=== PATIENT | male | born 1990 | race African-American/Black ===

== ENCOUNTER 2024-11-02 14:40 | Emergency (ER) | payer MEDICAID, SELFPAY ==
[2024-11-02 15:09] VITALS: BP 112/73; PULSE 89; RESP 16; TEMP 36.9; O2SAT 100; BMI 19.3
--- NOTE | 2024-11-02 15:11 | XR_ITS ---
Examination: PA lateral chest 2 views TECHNIQUE: Upright PA lateral chest 2 views Exam date and time: November 02, 2024 1517 hours INDICATIONS: Coughing shortness of breath beginning 4 days ago. FINDINGS: Normal heart size. Lungs are clear. The osseous structures are intact IMPRESSION: No active disease
--- NOTE | 2024-11-02 15:12 | EDNOTE_ITS ---
Upper Respiratory Inf. RME/HPI General Chief Complaint: Flu Like Symptoms Stated Complaint: COUGH X 4 DAYS Time Seen by Provider: 11/02/24 14:51 Source: patient Arrival date/time: 11/02/24 14:40 34-year-old male with a history of asthma presents to the emergency room with a chief complaint of coughing x 4 days. Mode of arrival: ambulatory Limitations: no limitations Related Data Allergies Allergy/AdvReac Type Severity Reaction Status Date / Time Penicillins Allergy Intermediate Hives Verified 11/02/24 14:45 Review of Systems Review of Systems Systems Reviewed: All systems reviewed, normal except as documented Constitutional Constitutional: Reports system reviewed and no additional complaints, except as documented, Denies fatigue, Denies fever(s), Denies headache(s) and Denies weakness Eyes Eyes: Reports system reviewed and no additional complaints, except as documented, Denies blurry vision and Denies change in vision ENT Ears, Nose, Mouth, and Throat: Reports system reviewed and no additional complaints, except as documented, Denies otalgia, Denies headache(s), Denies nasal congestion, Denies throat swelling and Denies vertigo Cardiovascular Cardiovascular: Reports system reviewed and no additional complaints, except as documented, Denies chest pain, Denies dyspnea and Denies dyspnea on exertion Respiratory Respiratory: Reports system reviewed and no additional complaints, except as documented, Reports chest congestion, Reports cough, Denies dyspnea, Denies dyspnea on exertion and Denies wheezing Gastrointestinal Gastrointestinal: Reports system reviewed and no additional complaints, except as documented, Denies abdominal pain, Denies cramping, Denies nausea and Denies vomiting Genitourinary Genitourinary: Reports system reviewed and no additional complaints, except as documented, Denies dysuria and Denies hematuria Musculoskeletal Musculoskeletal: Reports system reviewed and no additional complaints, except as documented and Denies back pain Integumentary/Breasts Skin/Breast: Reports system reviewed and no additional complaints, except as documented and Denies wounds Neurologic Neurologic: Reports system reviewed and no additional complaints, except as documented, Denies confusion, Denies headache(s), Denies lack of coordination, Denies vertigo and Denies weakness Psychiatric Psychiatric: Reports system reviewed and no additional complaints, except as documented, Denies anxiety, Denies confusion, Denies depression, Denies paranoia, Denies suicidal ideation and Denies tactile hallucinations Endocrine Endocrine: Reports system reviewed and no additional complaints, except as documented and Denies fatigue Hematologic/Lymphatic Hematologic/Lymphatic: Reports system reviewed and no additional complaints, except as documented and Denies lymphadenopathy Allergic/Immunologic Allergic/Immunologic: Reports system reviewed and no additional complaints, except as documented, Denies throat swelling, Denies urticaria and Denies wheezing Past Medical History Social History SMOKING STATUS: Never smoker ED Exam General Limitations: Present no limitations General appearance: Present alert and in no apparent distress Head Head exam: Present atraumatic Eye Eye exam: Present normal appearance, PERRL and EOMI ENT ENT exam: Present normal exam, normal oropharynx and mucous membranes moist Neck Neck exam: Present normal inspection, full ROM and trachea midline Chest Chest inspection: Present normal inspection and symmetric chest wall rise Respiratory Respiratory exam: Present normal lung sounds bilaterally; Absent respiratory distress, wheezes, stridor, accessory muscle use or prolonged expiratory phase Cardiovascular Cardiovascular exam: Present regular rate, normal rhythm and normal heart sounds Abdominal Exam Abdominal exam: Present soft and normal bowel sounds Extremities Exam Extremities exam: Present normal inspection and full ROM Back Exam Back exam: Present normal inspection and full ROM Neurological Exam Neurological exam: Present alert, oriented X3 and CN II-XII intact Psychiatric Psychiatric exam: Present normal affect and normal mood Skin Skin exam: Present warm, dry, intact and normal color Course Quality Measures none Orders Category Date Time Status Bedside COVID-19 Antigen Test NOW Care 11/02/24 15:11 Completed Bedside Influenza A&B Antigen Test NOW Care 11/02/24 15:11 Completed XR chest 2V Stat Exams 11/02/24 15:11 Completed Vital Signs Vital signs: Vital Signs Temperature 98.5 F 11/02/24 15:09 Pulse Rate 89 11/02/24 15:09 Respiratory Rate 16 11/02/24 15:09 Blood Pressure 112/73 11/02/24 15:09 Pulse Oximetry (%) 100 11/02/24 15:09 Oxygen Delivery Method Room Air 11/02/24 15:09 O2 saturation 100% on room air Upper Respiratory Infection MDM Narrative MDM Narrative:: 34-year-old male with a history of asthma presents to the emergency room with a chief complaint of coughing x 4 days. Patient is hemodynamically stable and in no apparent distress Patient is afebrile not tachycardic not tachypneic and O2 saturation 100% on room air Physical examination shows clear bilateral lung sounds with no wheezing stridor or any abnormal breath sounds Chest x-ray was negative for any pneumonic infiltrates. COVID-19 and influenza were both negative Patient was discharged educated to follow-up with his primary care provider in the next 24 to 40 hours or return to the emergency room for any evidence of worsening signs or send Patient data External records reviewed:: [facility] previous records Clinical information provided by:: patient Social determinants that could affect healthcare access:: none Patient has the following chronic illnesses:: No chronic illness How is presenting disease/condition affected by chronic disease/condition?: no chronic disease Evaluation data The following diagnostics were reviewed and interpreted by me:: lab results and radiology exam(s) Lab and/or radiology exams considered but not ordered:: Labs and radiology exams considered and ordered Interpretation Summary: Chest [id number] for any pneumonic infiltrates Medications / Prescriptions Medications or Prescriptions considered but not ordered:: No medication given Medication administrations:: No medication given Consultations Consultation(s) initiated? (list below): No Diagnosis Upper Respiratory Differential Diagnosis: upper respiratory infection, viral infection, bronchitis and influenza Most likely diagnosis given after review of the tests above:: Upper respiratory infection Admission Indicated Admission indicated?: not indicated Admission Request Was there a request for admission?: No Disposition Plan Disposition Plan: Discharge Discharge Attestation Discharge Attestation: The patient and all family members were given an opportunity to ask questions and understood the discharge instructions. Discharge instructions specifically effects, indications for sooner follow up or return to the emergency department, and the expected course of current diagnosis. Patient condition: Stable Discharge Plan Plan Patient Disposition: HOME (Self Care) Disposition Comment: Stable Prescriptions/Referrals Referrals: No Primary/Family,Physician [Primary Care Provider] - In 1 week Problem List Clinical Impression: Upper respiratory infection Patient/Caregiver Discharge Instructions Education Materials: ED URI, Viral, No Abx (Adult) Additional Instructions: Please follow-up with your primary care provider in the next 24 to 48 hours. You tested negative for influenza and COVID-19. Your chest x-ray is negative for pneumonia. Your most likely diagnosis is an upper respiratory infection that is viral. The treatment for this is symptom management. Please continue to take Tylenol and ibuprofen for fever management. Please increase your oral fluid intake. 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 Brito
== END 2024-11-02 16:40 | disposition home or self-care (01) ==
PROVIDERS: Emergency Provider Emergency Medicine
DX: J06.9 Acute upper respiratory infection, unspecified (principal); J45.909 Unspecified asthma, uncomplicated
CPT/HCPCS: 71046; 87400; 87811; 99283

== ENCOUNTER 2024-11-07 11:29 | Inpatient (IN) | payer MEDICAID, SELFPAY ==
[2024-11-07 11:30] VITALS: BMI 21.4
[2024-11-07 11:49] VITALS: BP 106/73; PULSE 133; RESP 29; TEMP 39.6; O2SAT 100
--- NOTE | 2024-11-07 11:51 | XR_ITS ---
Examination: PA lateral chest 2 views Technique: Upright PA lateral chest 2 views Indications: Fever coughing beginning 3 days ago. Exam date and time: November 07, 2024 1201 hrs. Findings: Subtle opacity in the right upper lobe Normal heart size Left lung clear Impression: Suspicious for early right upper lobe pneumonia
--- NOTE | 2024-11-07 11:52 | PD.EDRME ---
Rapid Medical Screening Exam [facility] Arrival date/time: 11/07/24 11:29 34-year-old male with a history of HIV presents to the emergency room with a chief complaint of a sore throat, fever, cough, phlegm x 5 days. I have greeted and performed a focused initial assessment of this patient. A comprehensive ED assessment and evaluation of the patient, analysis of all test results, and completion of the medical decision making process will be conducted by additional ED providers. Chief Complaint: Flu Like Symptoms Vital signs: Vital Signs Temperature 103.2 F H 11/07/24 11:49 Pulse Rate 133 H 11/07/24 11:49 Respiratory Rate 29 H 11/07/24 11:49 Blood Pressure 135/88 H 11/07/24 11:49 Pulse Oximetry (%) 100 11/07/24 11:49 Oxygen Delivery Method Room Air 11/07/24 11:49 Vital signs reviewed by provider: Yes
[2024-11-07 11:56] VITALS: TEMP 39.6
[2024-11-07] MEDS: ACETAMINOPHEN 500 MG TABLET 1000 MG PO (11:56)
[2024-11-07 12:28] LABS: Lactate (Lactic Acid) 1.4 mMol/L (0.4-2.0)
[2024-11-07 12:48] LABS: Basophils % (Auto) 0 % (0-2.5); Eosinophils % (Auto) 0 % (0-10); Hematocrit 25.7 % (41.0-53.0); Immature Granulocytes % (Auto) 1 % (0-0); Immature Granulocytes Auto 0.11 Thou/mm3 (0.00-0.00); Lymphocytes # (Auto) 2.5 Thou/mm3 (1.0-4.8); Lymphocytes % (Auto) 15 % (10-50); Mean Corpuscular HGB Conc 33.9 g/dl (31.0-37.0); Mean Corpuscular Volume 92 fL (80-100); Monocytes # (Auto) 0.9 Thou/mm3 (0.0-0.8); Monocytes % (Auto) 6 % (0-12); Neutrophils # (Auto) 12.9 Thou/mm3 (1.8-7.7); Neutrophils % (Auto) 78 % (37-80); Nucleated Red Blood Cell # 0.02 Thou/mm3 (0.00-0.00); Nucleated Red Blood Cell % 0 /100 WBC (0); Platelet Count 258 Thou/mm3 (140-440); RDW Standard Deviation 44.5 fL (35.1-43.9); Red Blood Count 2.81 Miln/mm3 (4.50-5.90); White Blood Count 16.4 Thou/mm3 (3.8-10.6)
[2024-11-07 13:00] LABS: Strep A Rapid Negative (Negative)
[2024-11-07 13:15] LABS: Alanine Aminotransferase 26 U/L (10-49); Albumin/Globulin Ratio 0.9 (1.2-2.2); Alkaline Phosphatase 160 U/L (46-116); Anion Gap 7 (7-16); Aspartate Amino Transferase 42 U/L (0-34); BUN/Creatinine Ratio 11 Ratio (12-20); Bilirubin,Total 0.3 mg/dL (0.3-1.2); Blood Urea Nitrogen 15 mg/dL (9-23); Calcium 8.9 mg/dL (8.3-10.6); Calcium (Corrected) 8.9 mg/dL (8.5-10.1); Carbon Dioxide 20.8 mMol/L (20.0-31.0); Chloride 107 mMol/L (98-107); Creatinine (Component) 1.4 mg/dL (0.6-1.3); Globulin 4.3 gm/dL (2.3-3.5); Glucose 93 mg/dL (74-106); Hemoglobin 8.7 g/dL (13.5-16.0); Osmolality,Calculated 270 (275-295); Potassium 4.1 mMol/L (3.4-5.1); Procalcitonin 0.29 ng/ml (0.0-0.49); Sodium 135 mMol/L (136-145); Total Protein 8.3 gm/dL (5.7-8.2); eGFR > 60 See Note
--- NOTE | 2024-11-07 16:16 | PD.EDFEVER ---
ED Fever RME/HPI General Chief Complaint: Flu Like Symptoms Stated Complaint: Cough, congestion, [place] x 6 days, fever. HIV + Arrival date/time: 11/07/24 11:29 RME / HPI RME / HPI Narrative: 11/07/24 11:29 34-year-old male with a history of HIV presents to the emergency room with a chief complaint of a sore throat, fever, cough, phlegm x 5 days. I have greeted and performed a focused initial assessment of this patient. A comprehensive ED assessment and evaluation of the patient, analysis of all test results, and completion of the medical decision making process will be conducted by additional ED providers. Related Data Allergies Allergy/AdvReac Type Severity Reaction Status Date / Time Penicillins Allergy Intermediate Hives Verified 11/02/24 14:45 Course Orders Category Date Time Status Bedside COVID-19 Antigen Test NOW Care 11/07/24 11:51 Active Bedside Influenza A&B Antigen Test NOW Care 11/07/24 11:51 Completed XR chest 2V Stat Exams 11/07/24 11:51 Completed Blood Culture (Lab) Stat Lab 11/07/24 11:57 Received CBC Stat Lab 11/07/24 11:57 Completed CMP [Comprehensive Metabolic Panel] Stat Lab 11/07/24 11:57 Completed Lactate (Lactic Acid) Stat Lab 11/07/24 11:57 Completed Procalcitonin Stat Lab 11/07/24 11:57 Completed Strep A Rapid Stat Lab 11/07/24 11:50 Completed UA [Urinalysis] Stat Lab 11/07/24 16:32 Completed Urine Culture Stat Lab 11/07/24 16:32 Received Acetaminophen Tab [Tylenol ES Tab] Med 11/07/24 11:52 Discontinued 1,000 mg PO X1 ONE Azithromycin Inj [Zithromax Inj] 500 mg Med 11/07/24 16:24 Active Sodium Chloride 0.9% 250 ml [Ns] 250 ml IV QPM Ringers Lactated 1000 ml [Lactated Ringers] 1,000 ml Med 11/07/24 16:24 Discontinued IV 2,000 mls/hr [id number] [Rocephin] 1,000 mg Med 11/07/24 16:23 Discontinued SODIUM CHLORIDE 0.9% (Popper) [Ns 0.9% (P)] 50 ml IV X1 Vital Signs Vital signs: Vital Signs Temperature 103.2 F H 11/07/24 11:49 Pulse Rate 133 H 11/07/24 11:49 Respiratory Rate 29 H 11/07/24 11:49 Blood Pressure 106/73 11/07/24 11:49 Pulse Oximetry (%) 100 11/07/24 11:49 Oxygen Delivery Method Room Air 11/07/24 11:49 Fever Medications / Prescriptions Medication administrations:: Medication Administration History Azithromycin 500 mg/ Sodium (Chloride) 250 mls @ 250 mls/hr IV QPM [place] Stop: 11/14/24 16:23 Discontinued Medications Acetaminophen (Acetaminophen 500 Mg Tablet) 1,000 mg PO X1 ONE Stop: 11/07/24 11:53 Last Admin: 11/07/24 11:56 Dose: 1,000 mg Documented By: BD Ceftriaxone Sodium 1,000 mg/ (Sodium Chloride) 50 mls @ 100 mls/hr IV X1 ONE Stop: 11/07/24 16:52 Lactated Ringer's (Lactated Ringers) 1,000 mls @ 2,000 mls/hr IV .Q30M ONE Stop: 11/07/24 16:53 Discharge Plan Prescriptions/Referrals Referrals: No Primary/Family,Physician [Primary Care Provider] - In 1 week Patient/Caregiver Discharge Instructions Print Language: Trinidadian
[2024-11-07 16:41] LABS: Collection Type, Urine Clean Catch; Squamous Epithelial Cell,Urine 0 /hpf (0-5)
[2024-11-07 16:52] LABS: Bilirubin,Urine Negative (Negative); Blood,Urine Negative (Negative); Clarity,Urine Clear (Clear/Hazy); Color,Urine Lt-Yellow (Lt Yel-Yel); Glucose, Urine Negative (Negative); Ketones,Urine Negative (Negative); Leukocyte Esterase,Urine Negative (Negative); Nitrite,Urine Negative (Negative); PH,Urine 6.5 (5.0-7.0); Protein,Urine 1+ (Neg - Trace); RBC,Urine 1 /hpf (0-3); Specific Gravity,Urine 1.016 (1.001-1.035); Urobilinogen,Urine Negative mg/dL (0.0-1.0); WBC,Urine < 1 /hpf (0-5)
--- NOTE | 2024-11-07 18:20 | PD.EDADDENDU ---
Emergency Room Addendum Addendum Narrative: Should be noted at approximately 1600 hrs. nurse Nichole approaches me states this patient is in the lobby for 3 hours and had a septic alert called earlier. I asked that the patient put in a room so I could see them and informed by the charge nurse and Nichole that there is no room. This obviously has delayed the septic alert. At 1820 hrs. patient is still in the waiting room and charge nurse is fully aware but there are no rooms in the ER to move this patient to. My shift is ended. Fluids were ordered based on vital signs abnormalities. Some removing myself from the chart
[2024-11-07 20:28] VITALS: TEMP 37.9
[2024-11-07] MEDS: cefTRIAXone 1,000 MG in SODIUM CHLORIDE 0.9% (Popper) 50 ML 100 MG IV (20:35)
[2024-11-07] MEDS: RINGERS LACTATED 1000 ML 1,000 ML 2000 ML IV (20:36)
[2024-11-07] MEDS: AZITHROMYCIN INJ 500 MG in SODIUM CHLORIDE 0.9% 250 ML 250 ML 250 MG IV (20:45)
--- NOTE | 2024-11-07 21:13 | PD.EDURI ---
Upper Respiratory Inf. RME/HPI General Chief Complaint: Flu Like Symptoms Stated Complaint: Cough, congestion, [place], [place] x 6 days, fever. HIV + Time Seen by Provider: 11/07/24 18:21 Arrival date/time: 11/07/24 11:29 Limitations: no limitations RME / HPI RME / HPI Narrative: 11/07/24 11:29 34-year-old male with a history of HIV presents to the emergency room with a chief complaint of a sore throat, fever, cough, phlegm x 5 days. I have greeted and performed a focused initial assessment of this patient. A comprehensive ED assessment and evaluation of the patient, analysis of all test results, and completion of the medical decision making process will be conducted by additional ED providers. DR. LÓPEZ MAIN ED EVALUATION: At 912 PM, patient was just brought to a room and I will evaluate the patient. 34-year-old male presents to the Emergency Department with complaint of chronic cough since July 25, 2024. Associated symptoms include a subjective fever, phlegm, and sore throat. Symptoms are moderate. No leg swelling. No rash. PMHx: HIV diagnosed in August 2024 with unknown level of CD4 count, bipolar disorder since 2017, noncompliant with some medication since 2021, hypertension since 2017 on lisinopril, diagnoses of food insecurity since January 2024, asymptomatic HIV infection as of 2009, diarrhea December 2023, history of syphilis 2017, history of homelessness in the past in 2022. Other history see MDM narrative. Social Hx: No tobacco, alcohol, or substance use. Related Data Allergies Allergy/AdvReac Type Severity Reaction Status Date / Time Penicillins Allergy Intermediate Hives Verified 11/02/24 14:45 Review of Systems Review of Systems Systems Reviewed: All systems reviewed, normal except as documented Narrative Review of Systems: GEN: + subjective fever, no chills, no weight loss EYES: No discharge, no visual changes, no pain HEENT: No ear pain, no congestion, + sore throat PULM: No shortness of breath, + chronic cough, + congestion CV: No chest pain, no dyspnea on exertion, no palpitations GI: No nausea, no vomiting, no diarrhea, no pain, no constipation : No frequency, no urgency and no dysuria MUSC/SKEL: No joint pain, no back pain SKIN: No rash PSYCH: No hallucinations, no depression HEME/LYMPH: No easy bleeding or bruising tendencies NEURO: No weakness, no headache Past Medical History Social History SMOKING STATUS: Never smoker SUBSTANCE USE: does not use ALCOHOL: Never ED Exam General Limitations: Present no limitations General appearance: Present alert and in no apparent distress Head Head exam: Present atraumatic, normocephalic and normal inspection Eye Eye exam: Present normal appearance, PERRL and EOMI ENT ENT exam: Present normal exam, normal oropharynx and mucous membranes moist Neck Neck exam: Present normal inspection, full ROM and trachea midline Chest Chest inspection: Present normal inspection and symmetric chest wall rise Respiratory Respiratory exam: Present normal lung sounds bilaterally Cardiovascular Cardiovascular exam: Present regular rate, normal rhythm and normal heart sounds Abdominal Exam Abdominal exam: Present soft and normal bowel sounds Extremities Exam Extremities exam: Present normal inspection and full ROM Back Exam Back exam: Present normal inspection and full ROM Neurological Exam Neurological exam: Present alert, oriented X3 and CN II-XII intact Psychiatric Psychiatric exam: Present normal affect and normal mood Skin Skin exam: Present warm, dry, intact and normal color Course Quality Measures none Orders Category Date Time Status Bedside COVID-19 Antigen Test NOW Care 11/07/24 11:51 Active Bedside Influenza A&B Antigen Test NOW Care 11/07/24 11:51 Completed COVID-19 Screening Questionnaire NOW Care 11/07/24 21:46 Active COVID-19 Screening Questionnaire NOW Care 11/07/24 22:39 Active Decision to Admit X1 Care 11/07/24 21:46 Completed Decision to Admit X1 Care 11/07/24 22:[address] chest abdomen pelvis w con SEPSIS PROTOCOL Stat Exams 11/07/24 21:31 Taken XR chest 2V Stat Exams 11/07/24 11:51 Completed Blood Culture (Lab) Stat Lab 11/07/24 11:57 Received CBC Stat Lab 11/07/24 11:57 Completed CMP [Comprehensive Metabolic Panel] Stat Lab 11/07/24 11:57 Completed Lactate (Lactic Acid) Stat Lab 11/07/24 11:57 Completed Procalcitonin Stat Lab 11/07/24 11:57 Completed Strep A Rapid Stat Lab 11/07/24 11:50 Completed UA [Urinalysis] Stat Lab 11/07/24 16:32 Completed Urine Culture Stat Lab 11/07/24 16:32 Received Acetaminophen Tab [Tylenol ES Tab] Med 11/07/24 11:52 Discontinued 1,000 mg PO X1 ONE Albuterol/Ipratr Rt Maria T [Duoneb Rt Maria T] Med 11/07/24 21:19 Discontinued 3 ml INH X1 ONE Azithromycin Inj [Zithromax Inj] 500 mg Med 11/07/24 16:24 Active Sodium Chloride 0.9% 250 ml [Ns] 250 ml IV QPM HYDROmorphone INJ [Dilaudid Inj] Med 11/07/24 22:19 Discontinued 0.5 mg IVP X1 ONE Ringers Lactated 1000 ml [Lactated Ringers] 1,000 ml Med 11/07/24 16:24 Discontinued IV 2,000 mls/hr Sodium Chloride 0.9% 1000 ml [Ns] 1,000 ml Med 11/07/24 22:19 Discontinued IV 999 mls/hr cefTRIAXone [Rocephin] 1,000 mg Med 11/07/24 16:23 Discontinued SODIUM CHLORIDE 0.9% (Popper) [Ns 0.9% (P)] 50 ml IV X1 Vital Signs Vital signs: Vital Signs Temperature 103.2 F H 11/07/24 11:49 Pulse Rate 133 H 11/07/24 11:49 Respiratory Rate 29 H 11/07/24 11:49 Blood Pressure 106/73 11/07/24 11:49 Pulse Oximetry (%) 100 11/07/24 11:49 Oxygen Delivery Method Room Air 11/07/24 11:49 Upper Respiratory Infection MDM Narrative MDM Narrative:: 34-year-old male with history of HIV diagnosed in August 2024 with unknown level of CD4 count followed at [facility]. Patient is previously a [facility] patient and I am looking at his records on his phone. Past medical history includes bipolar disorder since 2017, noncompliant with some medication since 2021. Hypertension since 2017 on lisinopril, diagnoses of food insecurity since January 2024, asymptomatic HIV infection as of 2009, diarrhea December 2023, history of syphilis 2017, history of homelessness in the past in 2022. It appears that he has been getting some care for his management per the record here March 15, 2024. Episode of chest pain June 24, 2024. Chronic cough since July 25, 2024. And weight loss. Previous bone records show history of acute kidney injury June 24, 2024-although the patient states he has not had a problem with his kidneys. protein calorie malnutrition severe diagnosed in May 2024, low magnesium July 19, 2024, dehydration 07/19/2024. Chronic metabolic acidosis July 23, 2024. Patient presents with sepsis secondary to pneumonia. Concern with HIV status and right upper lobe pneumonia. Cannot rule out other etiology. Patient is treated with 30 mL/kg bolus and antibiotics. The hospitalist team agrees to admit and they will follow the CT chest abdomen pelvis and make other recommendations as needed. Patient data External records reviewed:: [facility] previous records (Reviewed last admission discharge dated 11/02/24, patient admitted for the following: Upper respiratory infection) Clinical information provided by:: patient Social determinants that could affect healthcare access:: none Patient has the following chronic illnesses:: HIV diagnosed in August 2024 with unknown level of CD4 count, bipolar disorder since 2017, noncompliant with some medication since 2021, hypertension since 2017 on lisinopril, diagnoses of food insecurity since January 2024, asymptomatic HIV infection as of 2009, diarrhea December 2023, history of syphilis 2017, history of homelessness in the past in 2022. Other history see MDM narrative above. How is presenting disease/condition affected by chronic disease/condition?: exacerbated by Evaluation data The following diagnostics were reviewed and interpreted by me:: lab results and radiology exam(s) Lab and/or radiology exams considered but not ordered:: none Interpretation Summary: Procedure(s): XR chest 2V Accession Number(s): [id number] cc: Eliseo Cobb; Emir Romero MD; NO PRIMARY/FAMILY,PHYSICIAN~ Examination: PA lateral chest 2 views Technique: Upright PA lateral chest 2 views Indications: Fever coughing beginning 3 days ago. Exam date and time: November 07, 2024 1201 hrs. Findings: Subtle opacity in the right upper lobe Normal heart size Left lung clear Impression: Suspicious for early right upper lobe pneumonia Dictated By: Emir Romero MD Medications / Prescriptions Medications or Prescriptions considered but not ordered:: none Medication administrations:: Medication Administration History Acetaminophen (Acetaminophen 325 Mg Tablet) 650 mg PO Q6H PRN PRN Reason: Fever >101.5 Stop: 12/07/24 23:02 Acetaminophen (Acetaminophen Supp 650 Mg Supp) 650 mg LA Q6H PRN PRN Reason: PAIN SCALE 1-3 (mild Stop: 12/07/24 23:02 Albuterol/Ipratropium (Albuterol/Ipratropium (Duoneb) Rt Maria T 3 Ml Nebu) 3 ml INH Q6HRRT [place] Stop: 12/08/24 00:59 Last Admin: 11/08/24 00:30 Dose: 3 ml Documented By: HALEIGH Heparin Sodium (Porcine) (Heparin Sod Inj 5000 Unit/Ml Vial) 5,000 unit SC Q8HR [place] Stop: 11/22/24 05:59 Last Admin: 11/08/24 05:44 Dose: 5,000 unit Documented By: CVL Co-signed By: RAKEL Azithromycin 500 mg/ Sodium (Chloride) 250 mls @ 250 mls/hr IV QPM [place] Stop: 11/14/24 16:23 Last Infusion: 11/08/24 00:14 Dose: Infused Documented By: Admin: 11/07/24 20:45 Dose: 250 mls/hr Documented By: ANKUR Ceftriaxone Sodium 1,000 mg/ (Sodium Chloride) 50 mls @ 100 mls/hr IV QDAY [place] Stop: 11/14/24 23:11 Trimethoprim/Sulfamethoxazole (5 ml/ Dextrose) 105 mls @ 100 mls/hr IV Q6HR [place] Stop: 11/15/24 04:10 Ondansetron HCl (Ondansetron Inj 2 Mg/Ml Inj 2 Ml) 4 mg IV Q6H PRN; Protocol PRN Reason: NAUSEA OR VOMITING Stop: 12/07/24 23:02 Discontinued Medications Acetaminophen (Acetaminophen 500 Mg Tablet) 1,000 mg PO X1 ONE Stop: 11/07/24 11:53 Last Admin: 11/07/24 11:56 Dose: 1,000 mg Documented By: BD Albuterol/Ipratropium (Albuterol/Ipratropium (Duoneb) Rt Maria T 3 Ml Nebu) 3 ml INH X1 ONE Stop: 11/07/24 21:20 Last Admin: 11/07/24 21:39 Dose: 3 ml Documented By: ALIDA Azithromycin (Azithromycin 250 Mg Tablet) 250 mg PO X1 ONE Stop: 11/07/24 23:09 Last Admin: 11/08/24 00:14 Dose: Not Given Documented By: SHARIF Non-Admin Reason: Cancelled by Provider Hydromorphone HCl (Hydromorphone Inj 2 Mg/Ml Vial) 0.5 mg IVP X1 ONE Stop: 11/07/24 22:20 Ceftriaxone Sodium 1,000 mg/ (Sodium Chloride) 50 mls @ 100 mls/hr IV X1 ONE Stop: 11/07/24 16:52 Last Infusion: 11/07/24 21:08 Dose: Infused Documented By: Admin: 11/07/24 20:35 Dose: 100 mls/hr Documented By: ANKUR Comments: meds not given at time due to no rooms Lactated Ringer's (Lactated Ringers) 1,000 mls @ 2,000 mls/hr IV .Q30M ONE Stop: 11/07/24 16:53 Last Infusion: 11/08/24 00:14 Dose: Infused Documented By: Admin: 11/07/24 20:36 Dose: 2,000 mls/hr Documented By: ANKUR Comments: meds not given on time due to no rooms. Sodium Chloride (Ns) 1,000 mls @ 999 mls/hr IV .Q1H1M ONE Stop: 11/07/24 23:19 Sodium Chloride (Ns) 500 mls @ 999 mls/hr IV .Q31M ONE Stop: 11/07/24 23:33 Last Infusion: 11/08/24 00:15 Dose: Infused Documented By: Admin: 11/07/24 23:52 Dose: 999 mls/hr Documented By: EE Sodium Chloride (Sodium Chloride Rt 10% 15 Ml Nebu) 5 ml INH X1 ONE Stop: 11/07/24 23:09 Last Admin: 11/08/24 04:31 Dose: 5 ml Documented By: HALEIGH see above Consultations Consultation(s) initiated? (list below): Yes Consultation #1 (Physician, Specialty, Details): Discussed case with [the resident physician] from Hospitalist service regarding admission. Discussed patients ED course, exam findings, labs, and radiology results. The Hospitalist [agrees] to accept the patient for admission. Diagnosis Upper Respiratory Differential Diagnosis: viral infection, influenza and other (pneumonia) Most likely diagnosis given after review of the tests above:: see below Admission Indicated Admission indicated?: indicated Admission Request Was there a request for admission?: Yes Admission Attestation Admission request attestation: Discussed case with [] from Hospitalist service regarding admission. Discussed patients ED course, exam findings, labs, and radiology results. The Hospitalist [agrees,declines] to accept the patient for admission. Disposition Plan Disposition Plan: Admit Discharge Plan Plan Patient Disposition: Admit Acute Care w/in Hospital Patient condition on transfer: Stable Problem List Clinical Impression: HIV (human immunodeficiency virus infection), Sepsis, Right upper lobe pneumonia, Anemia, History of asthma
--- NOTE | 2024-11-07 21:31 | XR_ITS ---
Examination: CT chest with intravenous contrast CT abdomen with intravenous contrast CT pelvis with intravenous contrast 2-D coronal and sagittal reconstructions Time of exam: November 09, 2019 5004 100 hours Indications: HIV, headache nausea vomiting fever beginning 6 days ago, sepsis alert CTDI: vol (mGy) : 4.88 DLP: (mGycm): 334 Technique: Multiple axial images of the chest, abdomen and pelvis with intravenous contrast, 3.0 mm slice thickness. Images obtained post intravenous injection Isovue 370 60 cc. 2-D sagittal and coronal reconstructions. Low dose protocols were performed. One or more of the following dose reduction techniques were used; automated exposure control, adjustment of the mA and/or KV according to patient size, use of iterative reconstruction technique. Findings: No thoracic degenerative aneurysm dilatation Pulmonary artery segments are not enlarged No paratracheal tracheobronchial or bronchopulmonary adenopathy Diffuse soft tissue nodular opacities throughout both lungs Fatty infiltration throughout the liver no focal liver or splenic lesions No gallstones Multiple fluid distended small bowel loops as well as fluid distended colon Large amounts of stool in the rectosigmoid No free air No hydronephrosis Aorta normal size Appendix is fluid-filled but without definite inflammatory change Intact osseous structures Impression: Extensive bilateral pneumonia Colonic and small bowel ileus pattern
[2024-11-07] MEDS: ALBUTEROL/IPRATROPIUM (Duoneb) RT SOL 3 ML NEBU INH (21:39)
[2024-11-07 21:40] VITALS: PULSE 76; RESP 20; O2SAT 99
[2024-11-07] MEDS: SODIUM CHLORIDE 0.9% 500 ML 500 ML 999 ML IV (23:52)
[2024-11-07 23:56] VITALS: BP 134/67; PULSE 86; RESP 18; TEMP 37.6; O2SAT 99
[2024-11-08] VITALS (20 sets, daily range): BP systolic 99–154; BP diastolic 59–78; PULSE 87–119; RESP 15–23; TEMP 36.7–38.9; O2SAT 92–100; BMI 21.4
[2024-11-08] MEDS: ALBUTEROL/IPRATROPIUM (Duoneb) RT SOL 3 ML NEBU INH ×4 (00:30→20:09)
--- NOTE | 2024-11-08 01:26 | ESHP_ITS ---
<Statement entered by Aly Cuenca MD - 11/08/24 05:41> 34-year-old with HIV on Biktarvy with unknown last CD4 count, chronic diarrhea, remote history of syphilis and bipolar disorder who presented to the ER with productive cough. Patient states that he is from [facility] and recently moved to the area with her however has been having progressively worsening productive cough that has been going on for the past 6 days. Patient also endorses fevers however denies any hemoptysis states that he has been having 30 pound weight loss that he attributes to chronic diarrhea that has been going on for the past couple months. Patient denies any gardening or farming that could put him at risk for coccidiomycosis. In the ER, patient was noted to be septic and plan to initiate Rocephin and azithromycin. Patient also placed on airborne precaution pending CT chest to further evaluate for any lesions such as cavitary lesions or diffuse opacities that can suggest possible PJP pneumonia. As of now, plan to continue IV antibiotic therapy and patient has showed significant improvement with breaking his fevers. As of now, low suspicion for cocci or TB as patient symptoms is improving however if CT chest shows any cavitary lesion at that point might need a active TB workup, however unlikely.I reviewed above note and agree with findings and plans. I have also personally examined the patient with medicine team and went over assessment and plan with medical team including internal audit manager and resident physician. Documentation for date of: 11/08/24 HPI History of Present Illness Chief complaint: cough for 6 days before admission History of present illness: HPI: A 34-year-old male patient known case of HIV On Biktarvy last use was in August 2024, unknown last CD4 count, asthma, chronic anemia, remote history of syphilis, Bipolar disorder on a regular treatment, hypertension presented to the ED due to history of 6 days of productive cough. Patient reported that he recently came from [facility] to live with his . He mentioned that on Thursday last week his symptoms started as generalized malaise followed by productive cough which was yellowish sputum. Patient also reported mild shortness of breath, fever and chills. He denied any hemoptysis, or sick contacts. On further questioning patient reported that his weight fluctuate but recently he mentions that he noticed that he lost some weight. On review of other system patient reported that he has been having multiple bouts of diarrhea in which she cannot control himself and he has multiple accidents. He mentions that his stool is yellowish in color with no blood. He mentions that he has been diagnosed with Giardia previously. Home medications:Gabapentin, albuterol, buspiron, biktarvy, depokte, lisinopril, hydroxizine, loratidin. ED course: On presentation patient was found to be having excessive cough with phlegm production, found to be in septic state with pulse rate of 133, respiratory rate of 29, temperature of 103.2, his blood pressure is stable, noted to have a WBC of 16.4, hemoglobin of 8.7 normocytic, electrolytes within normal limits, serum creatinine is 1.4 within have previous serum creatinine levels, his AST was mildly elevated at 42, ALT 26, normal T. bili and alk phos. PMH: As above, patient history was taken from his patient portal chart from his phone Social hx: Alcohol: Denied Tobacco: Denied Illicit drugs: Denied Allergies: Penicillin Review of Systems Review of Systems Systems Reviewed: All systems reviewed, normal except as documented Exam Vital Signs Temp Pulse Resp BP Pulse Ox O2 Del Method 99.6 F 94 20 134/67 H 97 Room Air 11/07/24 23:56 11/08/24 00:34 11/08/24 00:34 11/07/24 23:56 11/08/24 00:34 11/07/24 23:56 Narrative Exam GEN: AOx3, able to speak full sentences HEENT: NC/AC, PERRLA, oral mucosa moist, neck supple CVS: RRR, S1-S2 present, no murmurs appreciated RESP: Coarse crackles bilaterally more on the right side GI: soft,non distended, non tender, NBS MSK: able to move all 4 limbs, no lower extremity edema SKIN: warm and dry CORPORATE SAFETY DIRECTOR: CN II-XII and Sensation grossly intact. Results: Labs 11/07/24 11:57 11/07/24 11:57 Labs: Short CBC 11/07/24 Range/Units 11:57 WBC 16.4 H (3.8-10.6) Thou/mm3 Hgb 8.7 L (13.5-16.0) g/dL Hct 25.7 L (41.0-53.0) % Plt Count 258 (140-440) Thou/mm3 BMP 11/07/24 11:57 Sodium 135 L Potassium 4.1 Chloride 107 Carbon Dioxide 20.8 BUN 15 Creatinine 1.4 H Glucose 93 Calcium 8.9 Liver Function 11/07/24 Range/Units 11:57 Total Bilirubin 0.3 (0.3-1.2) mg/dL AST 42 H (0-34) U/L ALT 26 (10-49) U/L Alkaline Phosphatase 160 H (46-116) U/L Albumin 4.0 (3.5-5.0) gm/dL Urine 11/07/24 Range/Units 16:32 Urine Color Lt-Yellow (Lt Yel-Yel) Urine Clarity Clear (Clear/Hazy) Urine pH 6.5 (5.0-7.0) Ur Specific [place] 1.016 (1.001-1.035) Urine Protein 1+ A (Neg - Trace) Urine Glucose (UA) Negative (Negative) Quality Measures Quality Measures none Medications Home Medications and Allergies Allergies Allergy/AdvReac Type Severity Reaction Status Date / Time Penicillins Allergy Intermediate Hives Verified 11/02/24 14:45 Visit Medications Acetaminophen (Acetaminophen 325 Mg Tablet) 650 mg PO Q6H PRN PRN Reason: Fever >101.5 Stop: 12/07/24 23:02 Acetaminophen (Acetaminophen Supp 650 Mg Supp) 650 mg ME Q6H PRN PRN Reason: PAIN SCALE 1-3 (mild Stop: 12/07/24 23:02 Albuterol/Ipratropium (Albuterol/Ipratropium (Duoneb) Rt Maria T 3 Ml Nebu) 3 ml INH Q6HRRT MALLORIE Stop: 12/08/24 00:59 Last Admin: 11/08/24 00:30 Dose: 3 ml Heparin Sodium (Porcine) (Heparin Sod Inj 5000 Unit/Ml Vial) 5,000 unit SC Q8HR MALLORIE Stop: 11/22/24 05:59 Azithromycin 500 mg/ Sodium (Chloride) 250 mls @ 250 mls/hr IV QPM MALLORIE Stop: 11/14/24 16:23 Last Infusion: 11/08/24 00:14 Dose: Infused Ceftriaxone Sodium 1,000 mg/ (Sodium Chloride) 50 mls @ 100 mls/hr IV QDAY MALLORIE Stop: 11/14/24 23:11 Ondansetron HCl (Ondansetron Inj 2 Mg/Ml Inj 2 Ml) 4 mg IV Q6H PRN; Protocol PRN Reason: NAUSEA OR VOMITING Stop: 12/07/24 23:02 Discontinued Medications Acetaminophen (Acetaminophen 500 Mg Tablet) 1,000 mg PO X1 ONE Stop: 11/07/24 11:53 Last Admin: 11/07/24 11:56 Dose: 1,000 mg Albuterol/Ipratropium (Albuterol/Ipratropium (Duoneb) Rt Maria T 3 Ml Nebu) 3 ml INH X1 ONE Stop: 11/07/24 21:20 Last Admin: 11/07/24 21:39 Dose: 3 ml Azithromycin (Azithromycin 250 Mg Tablet) 250 mg PO X1 ONE Stop: 11/07/24 23:09 Last Admin: 11/08/24 00:14 Dose: Not Given Hydromorphone HCl (Hydromorphone Inj 2 Mg/Ml Vial) 0.5 mg IVP X1 ONE Stop: 11/07/24 22:20 Ceftriaxone Sodium 1,000 mg/ (Sodium Chloride) 50 mls @ 100 mls/hr IV X1 ONE Stop: 11/07/24 16:52 Last Infusion: 11/07/24 21:08 Dose: Infused Lactated Ringer's (Lactated Ringers) 1,000 mls @ 2,000 mls/hr IV .Q30M ONE Stop: 11/07/24 16:53 Last Infusion: 11/08/24 00:14 Dose: Infused Sodium Chloride (Ns) 1,000 mls @ 999 mls/hr IV .Q1H1M ONE Stop: 11/07/24 23:19 Sodium Chloride (Ns) 500 mls @ 999 mls/hr IV .Q31M ONE Stop: 11/07/24 23:33 Last Infusion: 11/08/24 00:15 Dose: Infused Sodium Chloride (Sodium Chloride Rt 10% 15 Ml Nebu) 5 ml INH X1 ONE Stop: 11/07/24 23:09 Assessment & Plan Plan Summary: A 34-year-old male patient known case of HIV On Biktarvy last use was in August 2024, unknown last CD4 count, asthma, chronic anemia, remote history of syphilis, Bipolar disorder on a regular treatment, hypertension presented to the ED due to history of 6 days of productive cough. Patient was admitted for management of lower respiratory tract infection. Assessment and plan #Sepsis secondary to pneumonia #Community-acquired pneumonia versus PJP #History of asthma #HIV infection of unknown CD4 count Patient is known case of HIV, on irregular treatment of Biktarvy, last time he used Biktarvy was in August 2024, he lives with his male partner, presented with fever, chills, productive cough. Unknown last CD4 count, found to be in septic state with pulse rate of 133, respiratory rate of 29, temperature of 103.2, his blood pressure is stable, noted to have a WBC of 16.4. Lactic acid was 1.4, chest x-ray showed right upper lobe pneumonia, because it is not bilateral infiltrate and was still pending the chest CT scan will treat the patient as community-acquired pneumonia. Can be changed whenever we have more data such as CT scan or BAL Plan ? Admit patient to telemetry ? Start the patient on ceftriaxone 1 g 4 times daily and azithromycin 250 mg daily for 4 days ? Follow-up on the blood culture and urine culture ? Consider resuming Biktarvy for the patient or consult infectious disease specialist if needed ? Sent for beta glucan, B-D glucan, cocci, Legionella, MRSA screening ? DuoNebs every 6 hours scheduled consider switching him to as needed upon improvement - QuantiFERON TB test ? Put patient on airborne precautions and droplet precautions ? Follow-up on the chest CT scan results consider starting the patient on Bactrim if highly suspected. #History of chronic diarrhea Patient reported that he has multiple episodes of accidents because of his recurrent diarrhea, he denied any bleeding per rectum. Patient has history of HIV and he was at some point diagnosed with Giardia. Patient denied any abdominal pain, rectal urgency, bleeding per rectum, or painful defecation Plan ? Sent for stool culture, WBCs, calprotectin, Giardia screening #Transaminitis Noticed to have AST level of 42, ALT of 26 Plan ? Sent for acute hepatitis panel follow-up on the results #History of chronic anemia Patient has chronic history of anemia, normocytic, has history of chronic diarrhea and fluctuation of body weight DDx could be anemia of chronic disease, nutritional deficiency Plan ? Consider doing iron panel for the patient ? Sent for fecal occult blood, follow-up with results ? Consider nonurgent colonoscopy if needed #Remote history of syphilis Plan ? Will repeat STD panel #History of hypertension Plan ? Resume blood pressure whenever this appropriate #History of bipolar disorder Patient has history of bipolar disorder on regular treatment with Depakote Plan ? Consider resuming his Depakote upon med reconciliation Hospital Maintenance: FEN: Regular diet DVT ppx: Heparin subcu GI ppx: Protonix IV lines: PIV Damian: None Code status: Full code Dispo: Telemetry - Patient's plan and care discussed with my attending, Dr. Bang Butcher MD Internal Medicine PGY-2
--- NOTE | 2024-11-08 03:03 | PRELIM_ITS ---
CT scan of the chest, abdomen and pelvis with intravenous contrast (axial sections with sagittal and coronal reformats) November 08, 2024 0049 hours Clinical History: 34-year-old history of HIV with right upper lobe p No prior study is available for comparison. Findings: A small hiatal hernia is present. There are patchy ground glass opacities and clusters of tiny nodular densities with tree in bud appearance in bilateral upper and lower lobes. There is no pleural effusion or pneumothorax. The aorta is unremarkable without evidence of dissection or aneurysm. No evidence of mediastinal mass or lymphadenopathy. There is no pericardial effusion. The liver, gallbladder, spleen, pancreas, adrenals and kidneys are unremarkable. Moderate amount of fecal material is present in the sigmoid colon and rectum. Fluid-filled mildly distended small and large bowel loops. The appendix is not visualized. The urinary bladder is not well distended with apparent wall thickening. There is no free fluid or air. The osseous structures are unremarkable. Impression: Patchy ground glass opacities and clusters of tiny nodular densities with tree in bud appearance in bilateral upper and lower lobes, likely of infectious etiology. Mild ileus/enterocolitis. Recommend clinical correlation. Fecal impaction in the rectosigmoid colon. Other findings as described above. Report Electronically Signed By: Blane Beaver 11/08/2024 3:02:33 AM [EST]
[2024-11-08] MEDS: SODIUM CHLORIDE RT 10% 15 ML NEBU 5 ML INH (04:31)
[2024-11-08] MEDS: HEPARIN SOD INJ 5000 UNIT/ML VIAL SC ×3 (05:44→21:29)
[2024-11-08 05:51] LABS: Quantiferon-TB* See Sep Rpt
[2024-11-08 05:59] LABS: Basophils % (Auto) 0 % (0-2.5); Eosinophils % (Auto) 0 % (0-10); Immature Granulocytes % (Auto) 1 % (0-0); Immature Granulocytes Auto 0.12 Thou/mm3 (0.00-0.00); Lymphocytes # (Auto) 1.3 Thou/mm3 (1.0-4.8); Lymphocytes % (Auto) 12 % (10-50); Mean Corpuscular HGB Conc 33.5 g/dl (31.0-37.0); Mean Corpuscular Hemoglobin 31.1 pg (25.0-35.0); Mean Corpuscular Volume 93 fL (80-100); Monocytes # (Auto) 0.5 Thou/mm3 (0.0-0.8); Monocytes % (Auto) 5 % (0-12); Neutrophils # (Auto) 8.7 Thou/mm3 (1.8-7.7); Neutrophils % (Auto) 82 % (37-80); Nucleated Red Blood Cell % 0 /100 WBC (0); Platelet Count 207 Thou/mm3 (140-440); RDW Standard Deviation 44.2 fL (35.1-43.9); Red Blood Count 2.25 Miln/mm3 (4.50-5.90); White Blood Count 10.6 Thou/mm3 (3.8-10.6)
[2024-11-08 06:07] LABS: Hematocrit 20.9 % (41.0-53.0)
[2024-11-08 06:33] LABS: INR 1.3 (0.9-1.3); Partial Thromboplastin Time 34.5 Seconds (22.0-36.0); Prothrombin Time 14.1 Seconds (9.0-12.2)
[2024-11-08 06:38] LABS: Alanine Aminotransferase 20 U/L (10-49); Albumin, Serum 3.3 gm/dL (3.5-5.0); Albumin/Globulin Ratio 0.9 (1.2-2.2); Alkaline Phosphatase 128 U/L (46-116); Anion Gap 5 (7-16); Aspartate Amino Transferase 27 U/L (0-34); BUN/Creatinine Ratio 13 Ratio (12-20); Bilirubin,Total 0.3 mg/dL (0.3-1.2); Blood Urea Nitrogen 14 mg/dL (9-23); Calcium 8.3 mg/dL (8.3-10.6); Calcium (Corrected) 8.9 mg/dL (8.5-10.1); Carbon Dioxide 21.7 mMol/L (20.0-31.0); Chloride 111 mMol/L (98-107); Creatinine (Component) 1.1 mg/dL (0.6-1.3); Estimated Creatinine Clearance 81.5 mL/min (>60); Globulin 3.6 gm/dL (2.3-3.5); Glucose 87 mg/dL (74-106); Magnesium 1.3 mg/dL (1.6-2.6); Osmolality,Calculated 275 (275-295); Potassium 3.3 mMol/L (3.4-5.1); Sodium 138 mMol/L (136-145); Thyroid Stimulating Hormone 1.85 uIU/mL (0.55-4.78); Total Protein 6.9 gm/dL (5.7-8.2); eGFR > 60 See Note
[2024-11-08 06:49] LABS: MHATP/TP-PA* See Sep Rpt; Syphilis Reactive (Nonreactive)
[2024-11-08 07:08] LABS: Hepatitis A Antibody IgM Non Reactive (Non React); Hepatitis B Core Antibody IgM Non Reactive (Non React); Hepatitis B Surface Antigen Non Reactive (Non React); Hepatitis C Antibody Non Reactive (Non React)
[2024-11-08 07:54] LABS: Collection Type, Urine Clean Catch; Squamous Epithelial Cell,Urine 0 /hpf (0-5)
[2024-11-08 08:16] LABS: Bilirubin,Urine Negative (Negative); Blood,Urine Negative (Negative); Clarity,Urine Clear (Clear/Hazy); Color,Urine Lt-Yellow (Lt Yel-Yel); Glucose, Urine Negative (Negative); Ketones,Urine Negative (Negative); Leukocyte Esterase,Urine Negative (Negative); Nitrite,Urine Negative (Negative); Protein,Urine Trace (Neg - Trace); RBC,Urine 1 /hpf (0-3); Specific Gravity,Urine 1.016 (1.001-1.035); Urobilinogen,Urine Negative mg/dL (0.0-1.0); WBC,Urine < 1 /hpf (0-5)
--- NOTE | 2024-11-08 08:19 | PC.NURSE ---
report given from radio communications mechanician Hramony rosenbaum. pt is admit for pneumonia and r/o valley fever. pt is in airborne precautions at this time. pt is pending also a stool sample due to diarrhea with hx of James infection. pt has cough that is continuous. no fever at this time. pt hs a&ox4 and is pending admit bed.
[2024-11-08 08:43] LABS: HIV 1/2 Confirmation* See Sep Rpt
[2024-11-08] MEDS: TRIMETHOPRIM/SULFA 160/800 DS TABLET 2 TAB PO ×3 (09:07→21:29)
--- NOTE | 2024-11-08 09:12 | PC.NURSE ---
SPOKE TO DR. NEGRON AND MADE AWARE PT'S POTASSIUM 3.3 AND THAT PT PREFERE LIQUID FORM OF ORAL MEDICATIONS. PER DR. NEGRON, WILL PUT ORDERS IN SOON.
--- NOTE | 2024-11-08 09:17 | PC.NURSE ---
pt has friend/family at bedside.
[2024-11-08 09:19] LABS: Misc Send Out* See Sep Rpt
[2024-11-08] MEDS: POTASSIUM CHLORIDE 10% 20 MEQ/15 ML UDC PO (10:03)
[2024-11-08] MEDS: Magnesium Sulfate 4 GM Ivpb 4 GM/50 ML BAG IV (10:21)
--- NOTE | 2024-11-08 10:26 | PC.NURSE ---
SPOKE TO DR. NEGRON AND MADE AWARE PT IS REQUESTING COUGH MEDICINE. PER DR. NEGRON, WILL PUT AN ORDER IN.
--- NOTE | 2024-11-08 10:27 | PC.NURSE ---
SPOKE TO DR. NEGRON AND MADE AWARE PT IS COUGHING AND REQUESTING COUGH MEDICINE AT THIS TIME; PER DR. NEGRON, WILL PUT ORDERS IN.
[2024-11-08] MEDS: guaiFENesin SYRUP 200 MG/10 ML UDC 100 MG PO ×2 (10:34→16:45)
[2024-11-08] MEDS: ACETAMINOPHEN 325 MG TABLET 650 MG PO ×3 (10:47→23:59)
[2024-11-08 13:15] LABS: Cocci Serology, IgM Negative (Negative)
--- NOTE | 2024-11-08 14:24 | ESPR_ITS ---
<Statement entered by Megan Garcia MD - 11/09/24 07:35> Patient was seen and examined by me personally. I have directly supervised and reviewed documentation by the team resident and agree with its findings with any exceptions or additional findings as below. Plan of care was discussed with the attending, Dr. Hyde. Megan Garcia, PGY-2 Documentation for date of: 11/08/24 Subjective Subjective Interval history: 11/08/2024: Overnight admission for 34-year-old male with past medical history of HIV, syphilis, bipolar disorder who presented for symptoms of upper respiratory tract infection found to have concerning imaging findings leading to admission for pneumonia and pneumocystis jirovecci infection. Patient started on empiric IV antibiotic treatment with azithromycin, ceftriaxone and Bactrim with workup. Infectious disease has been consulted for recommendations and antibiotic stewardship. Patient also has symptoms of diarrhea andstoolculture WBC and Giardia is pending collection. Will follow-up with the patient's viral load and CD4 count. Patient's hemoglobin also resulted at 7.0 as a result will transfuse 1 unit of PRBC and follow-up with repeat H&H; workup sent for iron panel, reticulocyte count and peripheral blood smear. Exam Vital Signs Temp Pulse Resp BP Pulse Ox O2 Del Method 99.0 F 107 H 15 106/63 98 Room Air 11/08/24 13:06 11/08/24 13:06 11/08/24 13:06 11/08/24 13:06 11/08/24 13:06 11/08/24 10:23 Narrative Exam Physical Exam: GEN: Awake, answering questions appropriately, appears stated age HEENT: NC/AC, PERRLA, oral mucosa moist, neck supple CVS: RRR, S1-S2 present, no murmurs appreciated RESP: Coarse crackles bilaterally more on the right side GI: soft,non distended, non tender, NBS MSK: able to move all 4 limbs, no lower extremity edema RIP SAWYER: AOx3, CN II-XII and Sensation grossly intact. Objective Labs 11/09/24 04:42 11/09/24 04:42 Labs: Laboratory Results - last 24 hr 11/07/24 11/08/24 11/08/24 16:32 05:25 07:28 WBC 10.6 D RBC 2.25 L Hgb 7.0 L Hct 20.9 L* MCV 93 MCH 31.1 MCHC 33.5 RDW Std Deviation 44.2 H Plt Count 207 D Neut % (Auto) 82 H Lymph % (Auto) 12 O'Brien % (Auto) 5 Eos % (Auto) 0 Baso % (Auto) 0 Neut # (Auto) 8.7 H Lymph # (Auto) 1.3 O'Brien # (Auto) 0.5 Eos # (Auto) 0.0 Baso # (Auto) 0.0 Immature Gran # (Auto) 0.12 H Absolute Nucleated RBC 0.00 Immature Gran % 1 H Nucleated RBC % 0 PT 14.1 H INR 1.3 APTT 34.5 Sodium 138 Potassium 3.3 L D Chloride 111 H Carbon Dioxide 21.7 Anion Gap 5 L BUN 14 Creatinine 1.1 Estim Creat Clear Calc 81.5 eGFR > 60 BUN/Creatinine Ratio 13 Glucose 87 Calculated Osmolality 275 Calcium 8.3 Corrected Calcium 8.9 Phosphorus 2.0 L Magnesium 1.3 L Total Bilirubin 0.3 AST 27 ALT 20 Alkaline Phosphatase 128 H D Total Protein 6.9 Albumin 3.3 L D Globulin 3.6 H Albumin/Globulin Ratio 0.9 L TSH 1.85 Ur Collection Type Clean Catch Clean Catch Urine Color Lt-Yellow Lt-Yellow Urine Clarity Clear Clear Urine pH 6.5 7.0 Ur Specific [place] 1.016 1.016 Urine Protein 1+ A Trace Urine Glucose (UA) Negative Negative Urine Ketones Negative Negative Urine Blood Negative Negative Urine Nitrite Negative Negative Urine Bilirubin Negative Negative Urine Urobilinogen (Auto) Negative Negative Ur Leukocyte Esterase Negative Negative Urine RBC 1 1 Urine WBC < 1 < 1 Ur Squamous Epith Cells 0 0 Urine Bacteria None None Syphilis Serology Reactive A Coccidioides IgM Ab Negative Hepatitis A IgM Ab Non Reactive Hep Bs Antigen Non Reactive Hep B Core IgM Ab Non Reactive Hepatitis C Antibody Non Reactive HIV 1&2 Antibody Rapid See Comment Misc Test Result Cancelled Blood Type Antibody Screen Crossmatch Blood Bank Wristband ID 11/08/24 08:52 WBC RBC Hgb Hct MCV MCH MCHC RDW Std Deviation Plt Count Neut % (Auto) Lymph % (Auto) O'Brien % (Auto) Eos % (Auto) Baso % (Auto) Neut # (Auto) Lymph # (Auto) O'Brien # (Auto) Eos # (Auto) Baso # (Auto) Immature Gran # (Auto) Absolute Nucleated RBC Immature Gran % Nucleated RBC % PT INR APTT Sodium Potassium Chloride Carbon Dioxide Anion Gap BUN Creatinine Estim Creat Clear Calc eGFR BUN/Creatinine Ratio Glucose Calculated Osmolality Calcium Corrected Calcium Phosphorus Magnesium Total Bilirubin AST ALT Alkaline Phosphatase Total Protein Albumin Globulin Albumin/Globulin Ratio TSH Ur Collection Type Urine Color Urine Clarity Urine pH Ur Specific [place] Urine Protein Urine Glucose (UA) Urine Ketones Urine Blood Urine Nitrite Urine Bilirubin Urine Urobilinogen (Auto) Ur Leukocyte Esterase Urine RBC Urine WBC Ur Squamous Epith Cells Urine Bacteria Syphilis Serology Coccidioides IgM Ab Hepatitis A IgM Ab Hep Bs Antigen Hep B Core IgM Ab Hepatitis C Antibody HIV 1&2 Antibody Rapid Misc Test Result Blood Type O Positive Antibody Screen NEGATIVE Crossmatch See Detail Blood Bank Wristband ID Yes Quality Measures Quality Measures none Assessment & Plan Assessment Current Active Medications: Generic Name Dose Route Start Last Admin Trade Name Freq PRN Reason Stop Dose Admin Acetaminophen 650 mg 11/08/24 10:31 11/08/24 10:47 Acetaminophen 325 Mg Tablet PO 12/07/24 23:02 650 mg Q6H PRN Administration Fever >100.4 or Pain 1-10 Albuterol/Ipratropium 3 ml 11/08/24 01:00 11/08/24 12:43 Albuterol/Ipratropium (Duoneb) Rt Maria T 3 Ml Nebu INH 12/08/24 00:59 Not Given Q6HRRT MALLORIE Guaifenesin 100 mg 11/08/24 10:26 11/08/24 10:34 Guaifenesin Syrup 200 Mg/10 Ml Udc PO 12/08/24 10:25 100 mg QID PRN Administration COUGH Protocol Heparin Sodium (Porcine) 5,000 unit 11/08/24 06:00 11/08/24 05:44 Heparin Sod Inj 5000 Unit/Ml Vial SC 11/22/24 05:59 5,000 unit Q8HR MALLORIE Administration Azithromycin 500 mg/ Sodium 250 mls @ 250 mls/hr 11/07/24 16:24 11/08/24 00:14 Chloride IV 11/14/24 16:23 Infused QPM MALLORIE Infusion Ceftriaxone Sodium 1,000 mg/ 50 mls @ 100 mls/hr 11/08/24 21:00 Sodium Chloride IV 11/15/24 20:59 QDAY MALLORIE Ondansetron HCl 4 mg 11/07/24 23:03 Ondansetron Inj 2 Mg/Ml Inj 2 Ml IV 12/07/24 23:02 Q6H PRN NAUSEA OR VOMITING Protocol Trimethoprim/Sulfamethoxazole 2 tab 11/08/24 08:45 11/08/24 09:07 Trimethoprim/Sulfa 160/800 Ds Tablet PO 11/15/24 08:44 2 tab TID MALLORIE Administration Plan 34-year-old male patient known case of HIV On Biktarvy last use was in August 2024, unknown last CD4 count, asthma, chronic anemia, remote history of syphilis, Bipolar disorder on a regular treatment, hypertension presented to the ED due to history of 6 days of productive cough. Patient was admitted for management of lower respiratory tract infection. #Sepsis secondary to pneumonia #Community-acquired pneumonia vs. PJP vs. multifocal #History of asthma #HIV infection of unknown CD4 count Patient is known case of HIV, on irregular treatment of Biktarvy, last time he used Biktarvy was in August 2024, he lives with his male partner, presented with fever, chills, productive cough. Unknown last CD4 count, found to be in septic state with pulse rate of 133, respiratory rate of 29, temperature of 103.2, his blood pressure is stable, noted to have a WBC of 16.4. Lactic acid was 1.4, chest x-ray showed right upper lobe pneumonia, because it is not bilateral infiltrate and was still pending the chest CT scan will treat the patient as community-acquired pneumonia. Can be changed whenever we have more data such as CT scan or BAL Patient has been off Biktarvy [place] and has not seen a PCP for several months Blood cultures no growth ~24 hours Plan: Started patient on Truvada (Emtricitabine / Tenofovir) and Raltegravir triple therapy Infectious disease consulted, appreciate recommendations Continue ceftriaxone 1 g daily and azithromycin 250 mg daily for 4 days Follow-up on urine culture Pending beta glucan, B-D glucan, cocci, Legionella, MRSA screening, QuantiFERON TB test DuoNebs every 6 hours scheduled CD4 count and Viral load ordered #History of chronic diarrhea Patient reported that he has multiple episodes of accidents because of his recurrent diarrhea, he denied any bleeding per rectum. Patient has history of HIV and he was at some point diagnosed with Giardia. Patient denied any abdominal pain, rectal urgency, bleeding per rectum, or painful defecation Plan: Pending stool culture, WBCs, calprotectin, Giardia screening #History of chronic anemia vs. acute blood loss anemia Patient has chronic history of anemia, normocytic, has history of chronic diarrhea and fluctuation of body weight Differentials include: anemia of chronic disease, nutritional deficiency, blood loss anemia Patient's morning Hgb of 7; 1u of pRBC transfused --> Hgb of 9.5 Plan: Follow-up with morning iron panel, ferritin, reticulocyte count, blood smear #Remote history of syphilis As noted in HPI Plan: Syphillis serology reactive; send out for VDRL and Treponemal testing Follow-up on STD panel #History of hypertension Pending offcial med rec Patient is normotensive currently Plan: Will resume blood pressure meds when appropriate #History of bipolar disorder Patient has history of bipolar disorder on regular treatment with Depakote Plan Will consider resuming his Depakote upon med reconciliation #Elevated Liver Enzymes, downtrending Noticed to have AST level of 42, ALT of 26 Hepatitis panel negative Plan: Will continue to monitor Hospital Management: Diet: Regular diet Lines: PIV Bowel: Senna GI prophylaxis: Protonix DVT prophylaxis: Heparin subcu Dispo: ID consulted for HIV with PCP PNA and stool tests for diarrhea, transfusion for anemia and workup Code: Full Patient seen and assessed with attending Dr. Hyde and senior resident Dr. Jose Lane, PGY-1 Attending Provider Attestation/Addendum I reviewed labs, imaging, EKG, home medications and prior available records. Face to face evaluation was performed by me. I have personally examined the patient and discussed assessment and plan with the IM team. I reviewed the resident note and agree with the plan with exceptions as below. HIV infection Bilateral pneumonia Immunocompromise GERD Continue ceftriaxone/azithromycin Continue Bactrim Consulted ID Follow-up CD4/HIV viral load Follow-up TB Started Protonix
[2024-11-08 15:36] LABS: Hematocrit 27.6 % (41.0-53.0); Hemoglobin 9.5 g/dL (13.5-16.0)
--- NOTE | 2024-11-08 16:00 | PC.NURSE ---
blood transfusion complete. 350ml transfused. pt tolerated well and no reactions. flushed with 50ml NS.
[2024-11-08] MEDS: RALTEGRAVIR 400 MG TABLET PO (16:31)
[2024-11-08] MEDS: PANTOPRAZOLE INJ 40 MG VIAL IV (16:31)
[2024-11-08 16:33] LABS: Stool for WBCs Negative (Negative)
[2024-11-08] MEDS: EMTRICITABINE 200 MG/TENOFOVIR 300 MG TAB (NON-FORM) 1 TAB PO (16:33)
--- NOTE | 2024-11-08 17:04 | PC.NURSE ---
report given to floor nurse JOAQUINA to bed [id number]. nurse aware of pt is r/o TB and she is changing room and will call back with room number.
[2024-11-08] MEDS: BENZOCAINE/MENTHOL 1 LOZENGE PO (17:11)
[2024-11-08] MEDS: cefTRIAXone 1,000 MG in SODIUM CHLORIDE 0.9% (Popper) 50 ML 100 MG IV (20:34)
[2024-11-08] MEDS: AZITHROMYCIN INJ 500 MG in SODIUM CHLORIDE 0.9% 250 ML 250 ML 250 MG IV (21:29)
[2024-11-08] MEDS: BENZONATATE 100 MG CAPSULE 200 MG PO (21:29)
[2024-11-09] VITALS (11 sets, daily range): BP systolic 102–134; BP diastolic 61–77; PULSE 74–115; RESP 18–24; TEMP 36.8–39.4; O2SAT 91–99
[2024-11-09] MEDS: guaiFENesin SYRUP 200 MG/10 ML UDC 100 MG PO (00:02)
[2024-11-09] MEDS: HEPARIN SOD INJ 5000 UNIT/ML VIAL SC ×2 (05:19→21:02)
[2024-11-09] MEDS: TRIMETHOPRIM/SULFA 160/800 DS TABLET 2 TAB PO ×2 (05:19→13:21)
[2024-11-09] MEDS: BENZONATATE 100 MG CAPSULE 200 MG PO ×3 (05:20→21:02)
[2024-11-09 05:57] LABS: Basophils % (Auto) 0 % (0-2.5); Eosinophils % (Auto) 0 % (0-10); Hematocrit 26.5 % (41.0-53.0); Hemoglobin 9.1 g/dL (13.5-16.0); Immature Granulocytes % (Auto) 1 % (0-0); Immature Granulocytes Auto 0.13 Thou/mm3 (0.00-0.00); Lymphocytes # (Auto) 0.9 Thou/mm3 (1.0-4.8); Lymphocytes % (Auto) 7 % (10-50); Mean Corpuscular HGB Conc 34.3 g/dl (31.0-37.0); Mean Corpuscular Hemoglobin 31.2 pg (25.0-35.0); Mean Corpuscular Volume 91 fL (80-100); Monocytes # (Auto) 0.4 Thou/mm3 (0.0-0.8); Monocytes % (Auto) 3 % (0-12); Neutrophils # (Auto) 12.6 Thou/mm3 (1.8-7.7); Neutrophils % (Auto) 89 % (37-80); Nucleated Red Blood Cell % 0 /100 WBC (0); Platelet Count 217 Thou/mm3 (140-440); RDW Standard Deviation 46.5 fL (35.1-43.9); Red Blood Count 2.92 Miln/mm3 (4.50-5.90); Reticulocyte % (Auto) 1.3 % (0.5-1.5); Reticulocyte Absolute Auto 38.5 Biln/L (25.0-75.0); Reticulocyte Hgb Content 31.4 pg (28.0-35.0); White Blood Count 14.1 Thou/mm3 (3.8-10.6)
[2024-11-09 06:25] LABS: Path Review Blood Smear Sent to Pathologist
[2024-11-09 06:28] LABS: Alanine Aminotransferase 20 U/L (10-49); Albumin, Serum 3.3 gm/dL (3.5-5.0); Albumin/Globulin Ratio 0.9 (1.2-2.2); Alkaline Phosphatase 133 U/L (46-116); Anion Gap 9 (7-16); Aspartate Amino Transferase 32 U/L (0-34); BUN/Creatinine Ratio 8 Ratio (12-20); Bilirubin,Total 0.4 mg/dL (0.3-1.2); Blood Urea Nitrogen 11 mg/dL (9-23); Calcium 8.1 mg/dL (8.3-10.6); Calcium (Corrected) 8.7 mg/dL (8.5-10.1); Carbon Dioxide 18.6 mMol/L (20.0-31.0); Chloride 107 mMol/L (98-107); Creatinine (Component) 1.4 mg/dL (0.6-1.3); Globulin 3.7 gm/dL (2.3-3.5); Glucose 81 mg/dL (74-106); Osmolality,Calculated 268 (275-295); Phosphorous 2.5 mg/dL (2.4-5.1); Potassium 3.7 mMol/L (3.4-5.1); Sodium 135 mMol/L (136-145); eGFR > 60 See Note
[2024-11-09 06:29] LABS: Ferritin 369 ng/mL (10.5-307.3); Iron 16 mcg/dL (65-175); Percent Iron Saturation 7 % (20-55); Total Iron Binding Capacity 211 mcg/dL (250-425); Unsaturated Iron Binding 195 (225-295)
[2024-11-09] MEDS: EMTRICITABINE 200 MG/TENOFOVIR 300 MG TAB (NON-FORM) 1 TAB PO (08:24)
[2024-11-09] MEDS: cefTRIAXone 1,000 MG in SODIUM CHLORIDE 0.9% (Popper) 50 ML 100 MG IV (08:24)
[2024-11-09] MEDS: PANTOPRAZOLE INJ 40 MG VIAL IV (08:24)
[2024-11-09] MEDS: RALTEGRAVIR 400 MG TABLET PO ×2 (08:25→20:52)
--- NOTE | 2024-11-09 10:14 | PC.SS ---
Follow up note: Pt is on IV antibiotic and HIV meds. Dr. Tavera is consulting.
--- NOTE | 2024-11-09 10:39 | PCS.ST ---
Swallow evaluation completed. Mech-altered diet started. Please refer to report for findings. ST to follow.
--- NOTE | 2024-11-09 11:02 | ESPR_ITS ---
<Statement entered by Megan Garcia MD - 11/10/24 07:56> Patient was seen and examined by me personally. I have directly supervised and reviewed documentation by the team resident and agree with its findings with any exceptions or additional findings as below. Plan of care was discussed with the attending, Dr. Hyde. Patient appears clinically improved this morning. Remains on room air. Continue IV antibiotics. Bactrim was discontinued per Dr. Regan due to pneumonia pattern less likely to be PJP. HIV viral load, genotype, CD4 and other studies pending. Patient will need close follow up in the outpatient ID clinic. Megan Garcia, PGY-2 Documentation for date of: 11/09/24 Subjective Subjective Interval history: 11/09/2024: No acute overnight events to report. Patient seen and examined in hospital bed seems to have some improvement in presenting symptoms but continues to have dry cough. Patient's HIV labs are still pending but infectious disease was able to see the patient and the recommendation is to continue the new antiviral medications. ID recommends discontinuing Bactrim as there is no real evidence of PCP pneumonia at this time pending CD4 count. Patient's stool laboratory findings are still pending, WBC is negative but Giardia is still pending. Patient is also reporting some dysphagia and due to the high risk nature of esophagitis, consulted gastroenterology for recommendations. Will continue other IV antibiotics for the superimposed pneumonia and follow-up with infectious disease recommendation. Exam Vital Signs Temp Pulse Resp BP Pulse Ox O2 Del Method 98.8 F 81 18 102/63 98 Room Air 11/09/24 08:00 11/09/24 08:00 11/09/24 08:00 11/09/24 08:00 11/09/24 08:00 11/09/24 08:00 Narrative Exam Physical Exam: GEN: Awake, answering questions appropriately, appears stated age HEENT: NC/AC, PERRLA, oral mucosa moist, neck supple CVS: RRR, S1-S2 present, no murmurs appreciated RESP: Coarse crackles bilaterally more on the right side, dry-cough noted GI: soft,non distended, non tender, borborymi apparent MSK: able to move all 4 limbs, no lower extremity edema [employer]: AOx3, CN II-XII and Sensation grossly intact. Objective Labs 11/10/24 04:29 11/10/24 04:29 Labs: Laboratory Results - last 24 hr 11/08/24 11/08/24 11/08/24 05:25 08:52 14:33 WBC RBC Hgb Hct MCV MCH MCHC RDW Std Deviation Plt Count Neut % (Auto) Lymph % (Auto) [place] % (Auto) Eos % (Auto) Baso % (Auto) Neut # (Auto) Lymph # (Auto) [place] # (Auto) Eos # (Auto) Baso # (Auto) Immature Gran # (Auto) Absolute Nucleated RBC Immature Gran % Nucleated RBC % Smear Path Review Retic Count (auto) Absolute Retic Immature Retic Fraction Retic Hgb Content CHr Sodium Potassium Chloride Carbon Dioxide Anion Gap BUN Creatinine Estim Creat Clear Calc eGFR BUN/Creatinine Ratio Glucose Calculated Osmolality Calcium Corrected Calcium Phosphorus Magnesium Iron TIBC Iron Saturation Unsat Iron Binding Ferritin Total Bilirubin AST ALT Alkaline Phosphatase Total Protein Albumin Globulin Albumin/Globulin Ratio Stool for White Cells Negative Coccidioides IgM Ab Negative Misc Test Result Cancelled Blood Type O Positive Antibody Screen NEGATIVE Crossmatch See Detail Blood Bank Wristband ID Yes 11/08/24 11/09/24 11/09/24 15:24 04:42 05:00 WBC 14.1 H RBC 2.92 L Hgb 9.5 L D 9.1 L Hct 27.6 L 26.5 L MCV 91 MCH 31.2 MCHC 34.3 RDW Std Deviation 46.5 H Plt Count 217 Neut % (Auto) 89 H Lymph % (Auto) 7 L [place] % (Auto) 3 Eos % (Auto) 0 Baso % (Auto) 0 Neut # (Auto) 12.6 H Lymph # (Auto) 0.9 L [place] # (Auto) 0.4 Eos # (Auto) 0.0 Baso # (Auto) 0.0 Immature Gran # (Auto) 0.13 H Absolute Nucleated RBC 0.00 Immature Gran % 1 H Nucleated RBC % 0 Smear Path Review Sent to Pathologist Retic Count (auto) 1.3 Absolute Retic 38.5 Immature Retic Fraction 25.0 H Retic Hgb Content CHr 31.4 Sodium 135 L Potassium 3.7 Chloride 107 Carbon Dioxide 18.6 L Anion Gap 9 BUN 11 Creatinine 1.4 H Estim Creat Clear Calc 64.0 eGFR > 60 BUN/Creatinine Ratio 8 L Glucose 81 Calculated Osmolality 268 L Calcium 8.1 L Corrected Calcium 8.7 Phosphorus 2.5 Magnesium 2.0 Iron 16 L TIBC 211 L Iron Saturation 7 L Unsat Iron Binding 195 L Ferritin 369 H Total Bilirubin 0.4 AST 32 ALT 20 Alkaline Phosphatase 133 H Total Protein 7.0 Albumin 3.3 L Globulin 3.7 H Albumin/Globulin Ratio 0.9 L Stool for White Cells Coccidioides IgM Ab Misc Test Result Blood Type Antibody Screen Crossmatch Blood Bank Wristband ID Quality Measures Quality Measures none Assessment & Plan Assessment Current Active Medications: Generic Name Dose Route Start Last Admin Trade Name Freq PRN Reason Stop Dose Admin Acetaminophen 650 mg 11/08/24 10:31 11/08/24 23:59 Acetaminophen 325 Mg Tablet PO 12/07/24 23:02 650 mg Q6H PRN Administration Fever >100.4 or Pain 1-10 Albuterol/Ipratropium 3 ml 11/08/24 20:19 Albuterol/Ipratropium (Duoneb) Rt Maria T 3 Ml Nebu INH 12/08/24 20:18 Q4HRRT PRN WHEEZING Benzocaine 1 lozenge 11/08/24 15:45 11/08/24 17:11 Benzocaine/Menthol 1 Lozenge PO 12/08/24 15:44 1 lozenge Q4HR PRN Administration Sore throat Benzonatate 200 mg 11/08/24 22:00 11/09/24 05:20 Benzonatate 100 Mg Capsule PO 12/08/24 21:59 200 mg Q8HR MALLORIE Administration Protocol Emtricitabine/Tenofovir 1 tab 11/08/24 15:15 11/09/24 08:24 Emtricitabine 200 Mg/Tenofovir 300 Mg Tab (Non-Form) PO 11/15/24 15:14 1 tab QDAY MALLORIE Administration Guaifenesin 100 mg 11/08/24 10:26 11/09/24 00:02 Guaifenesin Syrup 200 Mg/10 Ml Udc PO 12/08/24 10:25 100 mg QID PRN Administration COUGH Protocol Heparin Sodium (Porcine) 5,000 unit 11/08/24 06:00 11/09/24 05:19 Heparin Sod Inj 5000 Unit/Ml Vial SC 11/22/24 05:59 5,000 unit Q8HR MALLORIE Administration Azithromycin 500 mg/ Sodium 250 mls @ 250 mls/hr 11/07/24 16:24 11/08/24 21:29 Chloride IV 11/14/24 16:23 250 mls/hr QPM MALLORIE Administration Ceftriaxone Sodium 1,000 mg/ 50 mls @ 100 mls/hr 11/08/24 21:00 11/09/24 08:54 Sodium Chloride IV 11/15/24 20:59 Infused QDAY MALLORIE Infusion Ondansetron HCl 4 mg 11/07/24 23:03 Ondansetron Inj 2 Mg/Ml Inj 2 Ml IV 12/07/24 23:02 Q6H PRN NAUSEA OR VOMITING Protocol Pantoprazole Sodium 40 mg 11/08/24 15:30 11/09/24 08:24 Pantoprazole Inj 40 Mg Vial IV 12/08/24 15:29 40 mg QDAY MALLORIE Administration Raltegravir 400 mg 11/08/24 15:15 11/09/24 08:25 Raltegravir 400 Mg Tablet PO 11/15/24 15:14 400 mg BID MALLORIE Administration Trimethoprim/Sulfamethoxazole 2 tab 11/08/24 08:45 11/09/24 05:19 Trimethoprim/Sulfa 160/800 Ds Tablet PO 11/15/24 08:44 2 tab TID MALLORIE Administration Plan 34-year-old male patient known case of HIV On Biktarvy last use was in August 2024, unknown last CD4 count, asthma, chronic anemia, remote history of syphilis, Bipolar disorder on a regular treatment, hypertension presented to the ED due to history of 6 days of productive cough. Patient was admitted for management of lower respiratory tract infection. #Sepsis secondary to pneumonia #Community-acquired pneumonia vs. PJP vs. multifocal #History of asthma #HIV infection of unknown CD4 count Patient is known case of HIV, on irregular treatment of Biktarvy, last time he used Biktarvy was in August 2024, he lives with his male partner, presented with fever, chills, productive cough. Unknown last CD4 count, found to be in septic state with pulse rate of 133, respiratory rate of 29, temperature of 103.2, his blood pressure is stable, noted to have a WBC of 16.4. Lactic acid was 1.4, chest x-ray showed right upper lobe pneumonia, because it is not bilateral infiltrate and was still pending the chest CT scan will treat the patient as community-acquired pneumonia. Can be changed whenever we have more data such as CT scan or BAL Patient has been off Biktarvy since [place] and has not seen a PCP for several months Blood cultures no growth ~48 hours and urine cultures show mixed ceasar Cocci negative Plan: Continue Truvada (Emtricitabine / Tenofovir) and Raltegravir triple therapy Infectious disease consulted, appreciate recommendations ID discontinued Bactrim as their low suspicion for PCP PNA at this time Continue ceftriaxone 1 g daily and azithromycin 250 mg daily for 4 days Sputum culture and speciation pending Pending beta glucan, B-D glucan, Legionella, MRSA screening, QuantiFERON TB test DuoNebs every 6 hours scheduled CD4 count and Viral load pending #Dysphagia #Leukocytosis Patient noting some dysphagia-like sensation when eating food bolus WBC did uptrend High suspicion for candidal vs. CMV esophagitits Plan: Consulted GI for recommendations #History of chronic diarrhea Patient reported that he has multiple episodes of accidents because of his recurrent diarrhea, he denied any bleeding per rectum. Patient has history of HIV and he was at some point diagnosed with Giardia. Patient denied any abdominal pain, rectal urgency, bleeding per rectum, or painful defecation Stool WBC negative Plan: Pending stool culture, calprotectin, Giardia screening #History of chronic anemia #Anemia of chronic disease Patient has chronic history of anemia, normocytic, has history of chronic diarrhea and fluctuation of body weight Differentials include: anemia of chronic disease, nutritional deficiency, blood loss anemia Patient's morning Hgb of 7; 1u of pRBC transfused --> Hgb of 9.5 Reticulocyte count is normal, Iron is low and Ferritin is high Plan: Will start iron supplementation on discharge Blood smear sent to pathologist #Remote history of syphilis As noted in HPI Plan: Syphillis serology reactive; send out for VDRL and Treponemal testing Follow-up on STD panel #History of hypertension Pending offcial med rec Patient is normotensive currently Plan: Will resume blood pressure meds when appropriate #History of bipolar disorder Patient has history of bipolar disorder on regular treatment with Depakote Plan Will consider resuming his Depakote upon med reconciliation #Elevated Liver Enzymes, downtrending Noticed to have AST level of 42, ALT of 26 Hepatitis panel negative Plan: Will continue to monitor Hospital Management: Diet: Regular diet Lines: PIV Bowel: Senna GI prophylaxis: Protonix DVT prophylaxis: Heparin subcu Dispo: ID consulted for HIV with PCP PNA and stool tests for diarrhea, GI consulted for dysphagia Code: Full Patient seen and assessed with attending Dr. Hyde and senior resident Dr. Jose Lane, PGY-1 Attending Provider Attestation/Addendum I reviewed labs, imaging, EKG, home medications and prior available records. Face to face evaluation was performed by me. I have personally examined the patient and discussed assessment and plan with the IM team. I reviewed the resident note and agree with the plan with exceptions as below. HIV infection Bilateral pneumonia Immunocompromise GERD Odynophagia Dysphagia, esophageal Possible iron deficiency anemia Continue ceftriaxone/azithromycin ID discontinued Bactrim Consulted ID: Agreed to continue ceftriaxone/azithromycin. Follow-up Fungitell and LDH Follow-up CD4/HIV viral load Follow-up TB Started Protonix Consulted EGD P.o. ferrous sulfate on discharge
[2024-11-09 12:02] LABS: Cocci Serology, IgG Negative (Negative)
--- NOTE | 2024-11-09 13:13 | PD.IDPROG ---
Subjective Subjective Interval history: hiv with likely poor adherence noted. cd4 and vl pending. rpr pending too. hx of all of that in past. but unclear as to duration of rx. rocephin is a back up drug for syphilis. cxr noted. if cd4 low, or if LDH high, could be pjp. recent dx of hiv and very recent dx of syphilis. no primary. just moved from [place]. Exam Vital Signs Temp Pulse Resp BP Pulse Ox O2 Del Method 98.2 F 98 20 122/64 99 Room Air 11/09/24 12:00 11/09/24 12:25 11/09/24 12:25 11/09/24 12:00 11/09/24 12:11/09/24 12:00 Narrative Exam room air. no cough or distress. so may be overcall on the resp infection side. Objective - Internal Medicine Labs 11/09/24 04:42 11/09/24 04:42 Labs: Laboratory Results - last 24 hr 11/08/24 11/08/24 11/08/24 05:25 08:52 14:33 WBC RBC Hgb Hct MCV MCH MCHC RDW Std Deviation Plt Count Neut % (Auto) Lymph % (Auto) [place] % (Auto) Eos % (Auto) Baso % (Auto) Neut # (Auto) Lymph # (Auto) [place] # (Auto) Eos # (Auto) Baso # (Auto) Immature Gran # (Auto) Absolute Nucleated RBC Immature Gran % Nucleated RBC % Smear Path Review Retic Count (auto) Absolute Retic Immature Retic Fraction Retic Hgb Content CHr Sodium Potassium Chloride Carbon Dioxide Anion Gap BUN Creatinine Estim Creat Clear Calc eGFR BUN/Creatinine Ratio Glucose Calculated Osmolality Calcium Corrected Calcium Phosphorus Magnesium Iron TIBC Iron Saturation Unsat Iron Binding Ferritin Total Bilirubin AST ALT Alkaline Phosphatase Total Protein Albumin Globulin Albumin/Globulin Ratio Stool for White Cells Negative Coccidioides IgG Ab Negative Coccidioides IgM Ab Negative Blood Type O Positive Antibody Screen NEGATIVE Crossmatch See Detail Blood Bank Wristband ID Yes 11/08/24 11/09/24 11/09/24 15:24 04:42 05:00 WBC 14.1 H RBC 2.92 L Hgb 9.5 L D 9.1 L Hct 27.6 L 26.5 L MCV 91 MCH 31.2 MCHC 34.3 RDW Std Deviation 46.5 H Plt Count 217 Neut % (Auto) 89 H Lymph % (Auto) 7 L [place] % (Auto) 3 Eos % (Auto) 0 Baso % (Auto) 0 Neut # (Auto) 12.6 H Lymph # (Auto) 0.9 L [place] # (Auto) 0.4 Eos # (Auto) 0.0 Baso # (Auto) 0.0 Immature Gran # (Auto) 0.13 H Absolute Nucleated RBC 0.00 Immature Gran % 1 H Nucleated RBC % 0 Smear Path Review Sent to Pathologist Retic Count (auto) 1.3 Absolute Retic 38.5 Immature Retic Fraction 25.0 H Retic Hgb Content CHr 31.4 Sodium 135 L Potassium 3.7 Chloride 107 Carbon Dioxide 18.6 L Anion Gap 9 BUN 11 Creatinine 1.4 H Estim Creat Clear Calc 64.0 eGFR > 60 BUN/Creatinine Ratio 8 L Glucose 81 Calculated Osmolality 268 L Calcium 8.1 L Corrected Calcium 8.7 Phosphorus 2.5 Magnesium 2.0 Iron 16 L TIBC 211 L Iron Saturation 7 L Unsat Iron Binding 195 L Ferritin 369 H Total Bilirubin 0.4 AST 32 ALT 20 Alkaline Phosphatase 133 H Total Protein 7.0 Albumin 3.3 L Globulin 3.7 H Albumin/Globulin Ratio 0.9 L Stool for White Cells Coccidioides IgG Ab Coccidioides IgM Ab Blood Type Antibody Screen Crossmatch Blood Bank Wristband ID Assessment & Plan A&P Narrative abn cxr w/o sx. hiv pos rpr. no titer yet for 2 yrs. spouse should be tested too ok for rocephin. it is a back up drug for syphilis ok for azithro for resp infection no proof of pjp, so will stop the bactrim hiv rx as ordered ok too. truvada and raltegravir noted. ok to go out on that as both are generic. ordered more tests for am. I can not be his primary, but I can see him in clinic if referred by a primary provider. we usually prioritize hiv pts. which means I usually see them within about 2-4 weeks at the various clinics where I work. Time Spent With Patient Time: Total time spent is greater than 50% in coordination of care (as documented) at patient's floor/unit and/or counseling patient:
[2024-11-09] MEDS: BENZOCAINE/MENTHOL 1 LOZENGE PO ×2 (13:21→20:53)
--- NOTE | 2024-11-09 15:21 | PC.SS ---
SS spoke to pt by phone regarding his d/c plan.? Pt is alert/oriented.? Pt was admitted for PNA, HIV.? Pt confirmed demographic and contact information is correct on facesheet.? Pt resides with .? Pt ambulates independently without assistance or DME.? Pt is ok with all ADLs.? Patient?s pharmacy of choice is [facility].? Pt named his , Markus Lim medical decision maker if he is unable.? Patient?s choice is to return home upon d/c.? Pt does not have an advance directive, SS offered, and pt declined.? Pt states not diabetic and is not on dialysis.? Pt states he followed up with PCP 2 X this week.? SS scheduled pt with a follow up appointment with PCP by his request.? First appointment was setup for 11-28-24 at 12:[address] Koffi Goel at [facility] on [address] in [place].? SS provided bedside nurse with [employer] with appointment time.? SS received call from nurse stating pt now is requesting for appointment time to changed to [facility] on [address] SS has rescheduled appointment for Thursday11-15-24 at 1:45pm with Dr. Leung at [facility] on [address] SS has provided nurse with new appointment time, date, and place.? ?? D/C plan:? Return home Next of Kin:? Markus Lim, , phone# [phone] PCP:? [facility] Address:? Correct on facesheet
--- NOTE | 2024-11-09 16:49 | ESCONSULT_ITS ---
RE: TASHA HEARD : 1990 DATE OF CONSULTATION: 11/09/2024 REFERRING PHYSICIAN: Dr. Cuenca and Dr. Hyde. REASON FOR CONSULTATION: HIV infection and abnormal respiratory status without hypoxia in a 34-year-old. HISTORY OF PRESENT ILLNESS: The patient is an unfortunate 34-year-old. He is on rx for pneumocystis, but his x-ray has more scattered bilateral pneumonia rather than diffuse, which is often seen with pneumocystis. He has no respiratory symptoms and so azithromycin for few days is reasonable. He reports that he was recently diagnosed with HIV in [facility] in about August and then moved to this area. He has been with the same male partner for about two years. They have been for that long. They may have been together longer. he is unaware of any prior syphilis hx or rx SURGERIES: Include I and D in the face for abscesses or drainage. ALLERGIES: NONE NOTED, THERE IS A LISTED PENICILLIN ALLERGY IN THE CHART, BUT HE REPORTS NO ALLERGIES INCLUDING PENICILLIN. MEDICATIONS: He is on Rocephin for positive syphilis test, which is also very recent. There is no titer available. IMMUNIZATIONS: Last tetanus is unknown. He has not had a flu shot every year. He has had three COVID vaccines and has not had pneumococcal. FAMILY HISTORY: Mostly known for his father having pancreatic cancer. His mother had cirrhosis. SOCIAL HISTORY: Lives with his male partner who has not been tested. His partner needs to be tested. He is in the room with him and I advised him to do so VIOLET. PHYSICAL EXAMINATION: GENERAL: The patient is on room air. HEENT: Otherwise benign. HEART: Otherwise benign. LUNGS: Otherwise benign. ABDOMEN: Otherwise benign. EXTREMITIES: There is no significant swelling or edema. NEUROLOGIC: Grossly normal. ASSESSMENT AND RECOMMENDATIONS: Probable atypical pneumonia versus routine bacterial pneumonia in a 34-year-old man. Valley fever can be falsely negative early and he has recent immigrants to this area, so we will recheck a Valley fever test. He is also -[place], so he is at slightly higher risk of complicated Valley fever if that occurs and occasionally be missed with a single test. I am going to go ahead and repeat the test tomorrow, check some other tests including LDH for presumptive pneumocystis. I will stop his Bactrim and check a BMP tomorrow as well. I will look forward to seeing him Moses if he remains, but he has no primary, so he will need to get one and then be referred to see me. If he wants to see me, that would be fine. I am certainly happy to see him. He could be maintained if he goes home on his , which he is current rx currently on, his integrase inhibitor is twice a day, Truvada is once a day. His renal function seems adequate. He should finish 3 to 4-day course of Zithromax 500 mg a day. He does not need any oxygen. I think we are okay. He is little bit anemic, which bears some followup. cc: MD Aly Billingsley MD DT: 13:50:18 TT: 15:24:00 Ref: [id number] - TID: [id number] MTDD
[2024-11-09] MEDS: ACETAMINOPHEN 325 MG TABLET 650 MG PO (17:35)
[2024-11-09] MEDS: AZITHROMYCIN INJ 500 MG in SODIUM CHLORIDE 0.9% 250 ML 250 ML 250 MG IV (20:52)
--- NOTE | 2024-11-09 23:11 | PD.IMCONS ---
HPI Data of Consult Requesting Physician: Kimani Hyde MD Primary Care Provider: Physician No Primary/Family Consult Narrative Reason for consult: Dysphagia History of present illness: 39 years old male admitted with sepsis due to pneumonia HIV positive leukocytosis chronic anemia and essential hypertension I been consulted for patient having progressive dysphagia cc:: cc: Kimani Hyde MD Review of Systems Review of Systems Systems Reviewed: All systems reviewed, normal except as documented Past Medical History Surgical History OTHER SURGICAL HX: As in the history of present illness Meds Home Medications and Allergies Home Medications ?Medication ?Instructions ?Recorded ?Confirmed ?Type albuterol 90 mcg/actuation aerosol 90 mcg inhalation Q4H PRN 11/08/24 11/08/24 History inhaler shortness of breath benzonatate 200 mg capsule 200 mg PO TID 11/08/24 11/08/24 History bictegravir 50 mg-emtricitabine 1 tab PO QDAY 11/08/24 11/08/24 History 200 mg-tenofovir alafenam 25 mg tablet (Biktarvy) buspirone 15 mg tablet 15 mg PO BID 11/08/24 11/08/24 History divalproex 500 mg tablet,extended 500 mg PO BID 11/08/24 11/08/24 History release 24 hr (Depakote ER) gabapentin 100 mg capsule 100 mg PO QDAY 11/08/24 11/08/24 History hydroxyzine HCl 25 mg tablet 25 mg PO QDAY 11/08/24 11/08/24 History lisinopril 20 mg tablet 20 mg PO QDAY 11/08/24 11/08/24 History loratadine 10 mg tablet 10 mg PO QDAY 11/08/24 11/08/24 History idalytzrrzwjm-TL-pjugpulozln ER 10 tab PO BID 11/08/24 History mg-30 mg-600 mg tab,ext.rel,12 hr Allergies Allergy/AdvReac Type Severity Reaction Status Date / Time Penicillins Allergy Intermediate Hives Verified 11/02/24 14:45 Exam Vital Signs Temp Pulse Resp BP Pulse Ox O2 Del Method 99.3 F 100 19 121/69 95 Room Air 11/09/24 20:00 11/09/24 20:00 11/09/24 20:00 11/09/24 20:00 11/09/24 20:00 11/09/24 20:00 Constitutional Comments: Chronically ill-appearing Routine Respiratory Exam Comments: Scattered rhonchi Routine Abdominal Exam Comments: Soft nontender Results Labs 11/09/24 04:42 11/09/24 04:42 Labs: Short CBC 11/09/24 Range/Units 04:42 WBC 14.1 H (3.8-10.6) Thou/mm3 Hgb 9.1 L (13.5-16.0) g/dL Hct 26.5 L (41.0-53.0) % Plt Count 217 (140-440) Thou/mm3 BMP 11/09/24 04:42 Sodium 135 L Potassium 3.7 Chloride 107 Carbon Dioxide 18.6 L BUN 11 Creatinine 1.4 H Glucose 81 Calcium 8.1 L Liver Function 11/09/24 Range/Units 04:42 Total Bilirubin 0.4 (0.3-1.2) mg/dL AST 32 (0-34) U/L ALT 20 (10-49) U/L Alkaline Phosphatase 133 H (46-116) U/L Albumin 3.3 L (3.5-5.0) gm/dL Assessment and Plan Additional Assessment & Plan Additional Plan: Dysphagia etiology uncertain Plan JAMILAH TSH Fiberoptic esophagogastroduodenoscopy with possible guidewire savory dilatation possible balloon dilatation Other medical problems include HIV positive Sepsis due to pneumonia Essential hypertension Chronic anemia Thank you very much for the opportunity to participate in the care of this patient
[2024-11-10] VITALS (16 sets, daily range): BP systolic 92–122; BP diastolic 57–86; PULSE 74–103; RESP 16–20; TEMP 36.2–37.4; O2SAT 93–100; BMI 21.4
[2024-11-10] MEDS: BENZONATATE 100 MG CAPSULE 200 MG PO ×2 (05:42→21:23)
[2024-11-10] MEDS: HEPARIN SOD INJ 5000 UNIT/ML VIAL SC ×2 (05:42→21:23)
[2024-11-10 05:57] LABS: Basophils % (Auto) 0 % (0-2.5); Eosinophils % (Auto) 0 % (0-10); Hematocrit 27.8 % (41.0-53.0); Hemoglobin 9.1 g/dL (13.5-16.0); Immature Granulocytes % (Auto) 1 % (0-0); Immature Granulocytes Auto 0.08 Thou/mm3 (0.00-0.00); Lymphocytes # (Auto) 1.1 Thou/mm3 (1.0-4.8); Lymphocytes % (Auto) 15 % (10-50); Mean Corpuscular HGB Conc 32.7 g/dl (31.0-37.0); Mean Corpuscular Hemoglobin 30.2 pg (25.0-35.0); Mean Corpuscular Volume 92 fL (80-100); Monocytes # (Auto) 0.4 Thou/mm3 (0.0-0.8); Monocytes % (Auto) 5 % (0-12); Neutrophils # (Auto) 6.1 Thou/mm3 (1.8-7.7); Neutrophils % (Auto) 79 % (37-80); Nucleated Red Blood Cell % 0 /100 WBC (0); Platelet Count 213 Thou/mm3 (140-440); RDW Standard Deviation 47.2 fL (35.1-43.9); Red Blood Count 3.01 Miln/mm3 (4.50-5.90); White Blood Count 7.7 Thou/mm3 (3.8-10.6)
[2024-11-10 06:12] LABS: B-Type Natriuretic Peptide 53 pg/mL (0-100)
[2024-11-10 06:28] LABS: Alanine Aminotransferase 21 U/L (10-49); Albumin, Serum 3.6 gm/dL (3.5-5.0); Albumin/Globulin Ratio 0.9 (1.2-2.2); Alkaline Phosphatase 127 U/L (46-116); Anion Gap 8 (7-16); Aspartate Amino Transferase 33 U/L (0-34); BUN/Creatinine Ratio 9 Ratio (12-20); Bilirubin,Total 0.4 mg/dL (0.3-1.2); Blood Urea Nitrogen 15 mg/dL (9-23); Calcium 8.9 mg/dL (8.3-10.6); Calcium (Corrected) 9.2 mg/dL (8.5-10.1); Carbon Dioxide 19.6 mMol/L (20.0-31.0); Chloride 106 mMol/L (98-107); Creatinine (Component) 1.6 mg/dL (0.6-1.3); Glucose 66 mg/dL (74-106); LDH (Lactate Dehydrogenase) 197 U/L (120-246); Magnesium 1.9 mg/dL (1.6-2.6); Osmolality,Calculated 267 (275-295); Phosphorous 2.3 mg/dL (2.4-5.1); Potassium 4.7 mMol/L (3.4-5.1); Sodium 134 mMol/L (136-145); Total Protein 7.6 gm/dL (5.7-8.2); eGFR 58 See Note
[2024-11-10 06:51] LABS: Hepatitis A Antibody IgM Non Reactive (Non React); Hepatitis B Core Antibody IgM Non Reactive (Non React); Hepatitis B Surface Antigen Non Reactive (Non React); Hepatitis C Antibody Non Reactive (Non React)
[2024-11-10] MEDS: cefTRIAXone 1,000 MG in SODIUM CHLORIDE 0.9% (Popper) 50 ML 100 MG IV (07:59)
[2024-11-10] MEDS: RALTEGRAVIR 400 MG TABLET PO ×2 (08:00→21:21)
[2024-11-10] MEDS: EMTRICITABINE 200 MG/TENOFOVIR 300 MG TAB (NON-FORM) 1 TAB PO (08:00)
[2024-11-10] MEDS: SOD PHOS ADDITIVE 15 MMOL in SODIUM CHLORIDE 0.9% 250 ML 250 ML 62.5 MMOL IV (09:34)
[2024-11-10 12:20] LABS: Quantiferon-TB* See Sep Rpt
[2024-11-10 13:37] LABS: Cocci Serology, IgM Negative (Negative)
--- NOTE | 2024-11-10 13:39 | ESPR_ITS ---
<Statement entered by Megan Garcia MD - 11/11/24 07:52> Patient was seen and examined by me personally. I have directly supervised and reviewed documentation by the team resident and agree with its findings with any exceptions or additional findings as below. Plan of care was discussed with the attending, Dr. Hyde. Continue IV ceftriaxone, azithromycin for pneumonia and syphilis treatment, ID following, continue HAART, EGD planned to investigate dysphagia. Megan Garcia, PGY-2 Documentation for date of: 11/10/24 Subjective Subjective Interval history: 11/10/24: No acute overnight events to report. Patient seen and examined in hospital bed has some mild improvement from previous days; however, patient continues to have dry coughing but denies having concerning symptoms such as chest pain, shortness of breath, abdominal pain. Infectious diseases closely following the patient and the recommendation is to continue new antiviral regimen and for the patient to get a referral to infectious disease once discharged. Patient still has pending laboratory workup including CD4 count, viral load, CMV, toxoplasma, Giardia; moreover, stool cultures are negative and urine cultures are negative. Patient's syphilis treponemal antibody is positive but per infectious disease he has been covered with the IV Rocephin that he is currently on for bacterial pneumonia. Patient's kidney function has slightly worsened today with an elevation in creatinine; moreover, will order urinalysis to rule out acute interstitial nephritis secondary to the Bactrim he was initially on. GI is also consulted and is planning EGD for progressive dysphagia. Exam Vital Signs Temp Pulse Resp BP Pulse Ox O2 Del Method 97.7 F 87 16 105/86 H 97 Room Air 11/10/24 08:00 11/10/24 12:00 11/10/24 08:15 11/10/24 08:00 11/10/24 08:15 11/10/24 08:00 Narrative Exam Physical Exam: GEN: Awake, answering questions appropriately, appears stated age HEENT: NC/AC, PERRLA, oral mucosa moist, neck supple CVS: RRR, S1-S2 present, no murmurs appreciated RESP: Coarse crackles bilaterally more on the right side, dry-cough noted GI: soft,non distended, non tender, borborymi apparent MSK: able to move all 4 limbs, no lower extremity edema EVENT DECORATOR: AOx3, CN II-XII and Sensation grossly intact. Objective Labs 11/11/24 05:11 11/11/24 05:11 Labs: Laboratory Results - last 24 hr 11/08/24 11/10/24 05:25 04:29 WBC 7.7 D RBC 3.01 L Hgb 9.1 L Hct 27.8 L MCV 92 MCH 30.2 MCHC 32.7 RDW Std Deviation 47.2 H Plt Count 213 Neut % (Auto) 79 Lymph % (Auto) 15 [place] % (Auto) 5 Eos % (Auto) 0 Baso % (Auto) 0 Neut # (Auto) 6.1 Lymph # (Auto) 1.1 [place] # (Auto) 0.4 Eos # (Auto) 0.0 Baso # (Auto) 0.0 Immature Gran # (Auto) 0.08 H Absolute Nucleated RBC 0.00 Immature Gran % 1 H Nucleated RBC % 0 Sodium 134 L Potassium 4.7 D Chloride 106 Carbon Dioxide 19.6 L Anion Gap 8 BUN 15 Creatinine 1.6 H Estim Creat Clear Calc 56.0 L eGFR 58 L BUN/Creatinine Ratio 9 L Glucose 66 L Calculated Osmolality 267 L Calcium 8.9 Corrected Calcium 9.2 Phosphorus 2.3 L Magnesium 1.9 Total Bilirubin 0.4 AST 33 ALT 21 Alkaline Phosphatase 127 H Lactate Dehydrogenase 197 B-Natriuretic Peptide 53 Total Protein 7.6 Albumin 3.6 Globulin 4.0 H Albumin/Globulin Ratio 0.9 L T.pallidum Ab (MHA) See Sep Rpt Coccidioides IgM Ab Negative Hepatitis A IgM Ab Non Reactive Hep Bs Antigen Non Reactive Hep B Core IgM Ab Non Reactive Hepatitis C Antibody Non Reactive TB Test (QFT) See Sep Rpt Quality Measures Quality Measures none Assessment & Plan Assessment Current Active Medications: Generic Name Dose Route Start Last Admin Trade Name Freq PRN Reason Stop Dose Admin Acetaminophen 650 mg 11/08/24 10:31 11/09/24 17:35 Acetaminophen 325 Mg Tablet PO 12/07/24 23:02 650 mg Q6H PRN Administration Fever >100.4 or Pain 1-10 Albuterol/Ipratropium 3 ml 11/08/24 20:19 Albuterol/Ipratropium (Duoneb) Rt Maria T 3 Ml Nebu INH 12/08/24 20:18 Q4HRRT PRN WHEEZING Benzocaine 1 lozenge 11/08/24 15:45 11/09/24 20:53 Benzocaine/Menthol 1 Lozenge PO 12/08/24 15:44 1 lozenge Q4HR PRN Administration Sore throat Benzonatate 200 mg 11/08/24 22:00 11/10/24 05:42 Benzonatate 100 Mg Capsule PO 12/08/24 21:59 200 mg Q8HR MALLORIE Administration Protocol Emtricitabine/Tenofovir 1 tab 11/08/24 15:15 11/10/24 08:00 Emtricitabine 200 Mg/Tenofovir 300 Mg Tab (Non-Form) PO 11/15/24 15:14 1 tab QDAY MALLORIE Administration Guaifenesin 100 mg 11/08/24 10:26 11/09/24 00:02 Guaifenesin Syrup 200 Mg/10 Ml Udc PO 12/08/24 10:25 100 mg QID PRN Administration COUGH Protocol Heparin Sodium (Porcine) 5,000 unit 11/08/24 06:00 11/10/24 05:42 Heparin Sod Inj 5000 Unit/Ml Vial SC 11/22/24 05:59 5,000 unit Q8HR MALLORIE Administration Azithromycin 500 mg/ Sodium 250 mls @ 250 mls/hr 11/07/24 16:24 11/09/24 20:52 Chloride IV 11/14/24 16:23 250 mls/hr QPM MALLORIE Administration Ceftriaxone Sodium 1,000 mg/ 50 mls @ 100 mls/hr 11/08/24 21:00 11/10/24 08:29 Sodium Chloride IV 11/15/24 20:59 Infused QDAY MALLORIE Infusion Ondansetron HCl 4 mg 11/07/24 23:03 Ondansetron Inj 2 Mg/Ml Inj 2 Ml IV 12/07/24 23:02 Q6H PRN NAUSEA OR VOMITING Protocol Raltegravir 400 mg 11/08/24 15:15 11/10/24 08:00 Raltegravir 400 Mg Tablet PO 11/15/24 15:14 400 mg BID MALLORIE Administration Sodium Chloride 5 ml 11/10/24 10:56 Sodium Chloride Rt 10% 15 Ml Nebu INH 12/10/24 10:55 PRN PRN Sputum Plan 34-year-old male patient known case of HIV On Biktarvy last use was in August 2024, unknown last CD4 count, asthma, chronic anemia, remote history of syphilis, Bipolar disorder on a regular treatment, hypertension presented to the ED due to history of 6 days of productive cough. Patient was admitted for management of lower respiratory tract infection. #Sepsis secondary to pneumonia #Community-acquired pneumonia vs. PJP vs. multifocal #History of asthma #HIV infection of unknown CD4 count Patient is known case of HIV, on irregular treatment of Biktarvy, last time he used Biktarvy was in August 2024, he lives with his male partner, presented with fever, chills, productive cough. Unknown last CD4 count, found to be in septic state with pulse rate of 133, respiratory rate of 29, temperature of 103.2, his blood pressure is stable, noted to have a WBC of 16.4. Lactic acid was 1.4, chest x-ray showed right upper lobe pneumonia, because it is not bilateral infiltrate and was still pending the chest CT scan will treat the patient as community-acquired pneumonia. Can be changed whenever we have more data such as CT scan or BAL Patient has been off Biktarvy [place] and has not seen a PCP for several months Blood cultures no growth ~48 hours and urine cultures show mixed ceasar Cocci negative, MRSA screening negative Sputum culture and speciation resulted in mixed ceasar QuantiFERON TB test indeterminate Plan: Continue Truvada (Emtricitabine / Tenofovir) and Raltegravir triple therapy Infectious disease consulted, appreciate recommendations Continue ceftriaxone 1 g daily and azithromycin 250 mg daily for 4 days Pending beta glucan, B-D glucan, Legionella Repeat QuantiFERON TB DuoNebs every 6 hours scheduled CD4 count and Viral load pending #Dysphagia #Leukocytosis Patient noting some dysphagia-like sensation when eating food bolus WBC did uptrend High suspicion for candidal vs. CMV esophagitits Plan: Consulted GI for recommendations EGD tentatively planned for 11/10 #History of chronic diarrhea Patient reported that he has multiple episodes of accidents because of his recurrent diarrhea, he denied any bleeding per rectum. Patient has history of HIV and he was at some point diagnosed with Giardia. Patient denied any abdominal pain, rectal urgency, bleeding per rectum, or painful defecation Stool WBC negative, stool culture with no pathologic bacteria Plan: Calprotectin, Giardia screening pending ID ordered CMV and toxoplasma #History of chronic anemia #Anemia of chronic disease Patient has chronic history of anemia, normocytic, has history of chronic diarrhea and fluctuation of body weight Differentials include: anemia of chronic disease, nutritional deficiency, blood loss anemia Patient's morning Hgb of 7; 1u of pRBC transfused --> Hgb of 9.5 Reticulocyte count is normal, Iron is low and Ferritin is high Blood smear conforms normcytic anemia with anisocytosis and reactive process regarding neutrophilia Plan: Will start iron supplementation on discharge #Active syphilis As noted in HPI Patient apparently knows about being positive for syphilis and was in the process of beginning treatment, but hadn't prior to admission Syphillis serology reactive; send out for VDRL and Treponemal testing also positive 1:16 titer Plan: Covered with IV Rocephin as above per ID recommendations #History of hypertension Pending offcial med rec Patient is normotensive currently Plan: Will resume blood pressure meds when appropriate #History of bipolar disorder Patient has history of bipolar disorder on regular treatment with Depakote Plan Will resume home Depakote #Elevated Liver Enzymes, downtrending Noticed to have AST level of 42, ALT of 26 Hepatitis panel negative Plan: Will continue to monitor Hospital Management: Diet: NPO Lines: PIV Bowel: Senna GI prophylaxis: Protonix DVT prophylaxis: Heparin subcu Dispo: ID consulted for HIV with PCP PNA and stool tests for diarrhea, GI consulted for dysphagia Code: Full Patient seen and assessed with attending Dr. Hyde and senior resident Dr. Jose Lane, PGY-1 Attending Provider Attestation/Addendum I reviewed labs, imaging, EKG, home medications and prior available records. Face to face evaluation was performed by me. I have personally examined the patient and discussed assessment and plan with the IM team. I reviewed the resident note and agree with the plan with exceptions as below. MANUEL, new complication HIV infection Bilateral pneumonia Immunocompromise GERD Odynophagia Dysphagia, esophageal Possible iron deficiency anemia Active syphilis Creatinine increased. Possible dehydration versus ATN. Ordered UA Continue ceftriaxone/azithromycin ID discontinued Bactrim Consulted ID: Agreed to continue ceftriaxone/azithromycin. Follow-up Fungitell and LDH Follow-up CD4/HIV viral load Follow-up TB QuantiFERON: Indeterminant. Repeat Started Protonix Syphilis serology is positive and confirmed: Continue IV ceftriaxone. [place] is notified by the lab Consulted GI: N.p.o. for EGD P.o. ferrous sulfate on discharge
[2024-11-10 14:07] LABS: Collection Type, Urine Clean Catch; Squamous Epithelial Cell,Urine 0 /hpf (0-5)
[2024-11-10 14:17] LABS: Bacteria,Urine Rare; Bilirubin,Urine Negative (Negative); Blood,Urine Negative (Negative); Clarity,Urine Clear (Clear/Hazy); Color,Urine Lt-Yellow (Lt Yel-Yel); Glucose, Urine Negative (Negative); Ketones,Urine Negative (Negative); Leukocyte Esterase,Urine Negative (Negative); Nitrite,Urine Negative (Negative); Protein,Urine Trace (Neg - Trace); RBC,Urine 1 /hpf (0-3); Specific Gravity,Urine 1.013 (1.001-1.035); Urobilinogen,Urine Negative mg/dL (0.0-1.0); WBC,Urine < 1 /hpf (0-5)
[2024-11-10 17:50] LABS: (1-3)-B-D-glucan* <31 pg/mL
--- NOTE | 2024-11-10 19:57 | PC.NURSE ---
Pt down to endoscopy via gurney.
--- NOTE | 2024-11-10 20:52 | PC.NURSE ---
Patient back to room via gurney.
[2024-11-10] MEDS: AZITHROMYCIN INJ 500 MG in SODIUM CHLORIDE 0.9% 250 ML 250 ML 250 MG IV (21:20)
[2024-11-10] MEDS: DIVALPROEX SOD ER 250 MG TABER (NON-FORMULARY) 500 MG PO (21:23)
[2024-11-10 22:05] LABS: CD19 Percentage 2 % (6-29); CD19, Absolute 21 cells/uL (110-660); CD3 Percentage 77 % (57-85); CD3, Absolute 731 cells/uL (840-3060); CD3-CD16+CD56+ % 19 % (4-25); CD3-CD16+CD56+ (Abs) 179 cells/uL (70-760); CD4 Percentage 1 % (30-61); CD4, Absolute <20 cells/uL (490-1740); CD4/CD8 Ratio 0.01 (0.86-5.00); CD8 Percentage 72 % (12-42); CD8, Absolute 677 cells/uL (180-1170)
[2024-11-11] VITALS: BP 99/67; PULSE 81; RESP 17; TEMP 36.6; O2SAT 95
[2024-11-11 03:45] VITALS: PULSE 67
[2024-11-11 04:00] VITALS: BP 95/65; PULSE 72; RESP 16; TEMP 36.1; O2SAT 94
[2024-11-11] MEDS: BENZONATATE 100 MG CAPSULE 200 MG PO (05:19)
[2024-11-11] MEDS: HEPARIN SOD INJ 5000 UNIT/ML VIAL SC (05:19)
[2024-11-11 06:13] LABS: Basophils % (Auto) 0 % (0-2.5); Eosinophils # (Auto) 0.1 Thou/mm3 (0.0-0.5); Eosinophils % (Auto) 2 % (0-10); Hematocrit 27.4 % (41.0-53.0); Hemoglobin 9.1 g/dL (13.5-16.0); Immature Granulocytes % (Auto) 2 % (0-0); Immature Granulocytes Auto 0.07 Thou/mm3 (0.00-0.00); Lymphocytes # (Auto) 0.8 Thou/mm3 (1.0-4.8); Lymphocytes % (Auto) 20 % (10-50); Mean Corpuscular HGB Conc 33.2 g/dl (31.0-37.0); Mean Corpuscular Hemoglobin 30.7 pg (25.0-35.0); Mean Corpuscular Volume 93 fL (80-100); Monocytes # (Auto) 0.3 Thou/mm3 (0.0-0.8); Monocytes % (Auto) 7 % (0-12); Neutrophils # (Auto) 2.6 Thou/mm3 (1.8-7.7); Neutrophils % (Auto) 68 % (37-80); Nucleated Red Blood Cell % 0 /100 WBC (0); Platelet Count 239 Thou/mm3 (140-440); RDW Standard Deviation 47.5 fL (35.1-43.9); Red Blood Count 2.96 Miln/mm3 (4.50-5.90); White Blood Count 3.8 Thou/mm3 (3.8-10.6)
[2024-11-11 06:33] LABS: Alanine Aminotransferase 22 U/L (10-49); Albumin, Serum 3.4 gm/dL (3.5-5.0); Albumin/Globulin Ratio 0.9 (1.2-2.2); Alkaline Phosphatase 120 U/L (46-116); Anion Gap 9 (7-16); Aspartate Amino Transferase 33 U/L (0-34); BUN/Creatinine Ratio 11 Ratio (12-20); Bilirubin,Total 0.3 mg/dL (0.3-1.2); Blood Urea Nitrogen 15 mg/dL (9-23); Calcium 8.5 mg/dL (8.3-10.6); Carbon Dioxide 19.6 mMol/L (20.0-31.0); Chloride 107 mMol/L (98-107); Creatinine (Component) 1.4 mg/dL (0.6-1.3); Glucose 77 mg/dL (74-106); LDH (Lactate Dehydrogenase) 161 U/L (120-246); Osmolality,Calculated 271 (275-295); Potassium 4.4 mMol/L (3.4-5.1); Sodium 136 mMol/L (136-145); Total Protein 7.4 gm/dL (5.7-8.2); eGFR > 60 See Note
[2024-11-11 06:40] LABS: Lymphocytes, Absolute 947 cells/uL (850-3900)
[2024-11-11 06:40] LABS: Interpretation NEGATIVE
[2024-11-11 07:01] LABS: HIV-1/2 Rapid Confirmation See Cmnt-Confrm=Pos
[2024-11-11 07:31] VITALS: BP 108/55; PULSE 80; RESP 18; TEMP 36.2; O2SAT 95
[2024-11-11 08:00] VITALS: PULSE 82; RESP 18; O2SAT 95
--- NOTE | 2024-11-11 09:15 | ESPR_ITS ---
Subjective Subjective Interval history: hiv labs take about 5-7d. rpr pos 1:16. no overt experimental worker features. spouse should be tested for hiv and for syphilis. they have been together for 2 yrs or more, creat down from 1.6 to 1.4 Exam Vital Signs Temp Pulse Resp BP Pulse Ox O2 Del Method O2 Flow Rate 97.2 F 82 18 108/55 L 95 Room Air 3 11/11/24 07:31 11/11/24 08:00 11/11/24 08:00 11/11/24 07:31 11/11/24 08:00 11/11/24 07:31 11/10/24 20:30 Narrative Exam remains on room air. had rt mouth surgery at [facility] a few yrs ago. spouse is reportedly neg, but I am unsure if both for hiv and rpr. could be. keeping him here in isolation not sensible Objective - Internal Medicine Labs 11/11/24 05:11 11/11/24 05:11 Labs: Laboratory Results - last 24 hr 11/08/24 11/08/24 11/10/24 05:25 08:52 04:29 WBC RBC Hgb Hct MCV MCH MCHC RDW Std Deviation Plt Count Neut % (Auto) Lymph % (Auto) [place] % (Auto) Eos % (Auto) Baso % (Auto) Neut # (Auto) Lymph # (Auto) [place] # (Auto) Eos # (Auto) Baso # (Auto) Immature Gran # (Auto) Absolute Nucleated RBC Immature Gran % Nucleated RBC % Total Abs Lymphocytes 947 Sodium Potassium Chloride Carbon Dioxide Anion Gap BUN Creatinine Estim Creat Clear Calc eGFR BUN/Creatinine Ratio Glucose Calculated Osmolality Calcium Corrected Calcium Total Bilirubin AST ALT Alkaline Phosphatase Lactate Dehydrogenase Total Protein Albumin Globulin Albumin/Globulin Ratio Ur Collection Type Urine Color Urine Clarity Urine pH Ur Specific [place] Urine Protein Urine Glucose (UA) Urine Ketones Urine Blood Urine Nitrite Urine Bilirubin Urine Urobilinogen (Auto) Ur Leukocyte Esterase Urine RBC Urine WBC Ur Squamous Epith Cells Urine Bacteria Lymphocyte Subset Cmmnt TNP % CD3 Cells 77 Absolute CD3 Count 731 L % CD3-/CD16+/CD56+ 19 Abs CD3-/CD16+/CD56+ 179 % CD4 Cells 1 L Absolute CD4 Count <20 L CD4/CD8 Ratio 0.01 L % CD8 Cells 72 H Absolute CD8 Count 677 % CD19 Cells 2 L Absolute CD19 Count 21 L Coccidioides IgM Ab Negative HIV (1&2) Ab Confirm See Cmnt-Confrm=Pos A Beta-(1,3)-D-Glucan <31 B-(1,3)-D-Glucan Intrp NEGATIVE Misc Test Result See Sep Rpt 11/10/24 11/11/24 13:27 05:11 WBC 3.8 D RBC 2.96 L Hgb 9.1 L Hct 27.4 L MCV 93 MCH 30.7 MCHC 33.2 RDW Std Deviation 47.5 H Plt Count 239 Neut % (Auto) 68 Lymph % (Auto) 20 [place] % (Auto) 7 Eos % (Auto) 2 Baso % (Auto) 0 Neut # (Auto) 2.6 Lymph # (Auto) 0.8 L [place] # (Auto) 0.3 Eos # (Auto) 0.1 Baso # (Auto) 0.0 Immature Gran # (Auto) 0.07 H Absolute Nucleated RBC 0.00 Immature Gran % 2 H Nucleated RBC % 0 Total Abs Lymphocytes Sodium 136 Potassium 4.4 Chloride 107 Carbon Dioxide 19.6 L Anion Gap 9 BUN 15 Creatinine 1.4 H Estim Creat Clear Calc 64.0 eGFR > 60 BUN/Creatinine Ratio 11 L Glucose 77 Calculated Osmolality 271 L Calcium 8.5 Corrected Calcium 9.0 Total Bilirubin 0.3 AST 33 ALT 22 Alkaline Phosphatase 120 H Lactate Dehydrogenase 161 Total Protein 7.4 Albumin 3.4 L Globulin 4.0 H Albumin/Globulin Ratio 0.9 L Ur Collection Type Clean Catch Urine Color Lt-Yellow Urine Clarity Clear Urine pH 7.0 Ur Specific [place] 1.013 Urine Protein Trace Urine Glucose (UA) Negative Urine Ketones Negative Urine Blood Negative Urine Nitrite Negative Urine Bilirubin Negative Urine Urobilinogen (Auto) Negative Ur Leukocyte Esterase Negative Urine RBC 1 Urine WBC < 1 Ur Squamous Epith Cells 0 Urine Bacteria Rare Lymphocyte Subset Cmmnt % CD3 Cells Absolute CD3 Count % CD3-/CD16+/CD56+ Abs CD3-/CD16+/CD56+ % CD4 Cells Absolute CD4 Count CD4/CD8 Ratio % CD8 Cells Absolute CD8 Count % CD19 Cells Absolute CD19 Count Coccidioides IgM Ab HIV (1&2) Ab Confirm Beta-(1,3)-D-Glucan B-(1,3)-D-Glucan Intrp Misc Test Result Assessment & Plan A&P Narrative hiv, new syphilis, new pen allergy rogelio, creat 1.6. down to 1.4 despite recent addition of truvada changed rocephin to po doxy. finished 3d of azithro 500 and note that doxy already good for atypical pneumonia. also the #2 agent for syphilis for a monthand he has a pen allergy if home, repeat cxr in 4-6 weeks. hiv kimberly and some other tests pending. cd4 pending. chest ct not really diffuse, but more scattered lesions. will add cocci for am too. if home, get repeat cocci before he leaves. see that original is neg. if home, ok for raltegravir and truvdada as he is getting and doxy all po. no need for isolation. please review ct images and not report. images not as impressive as report. ok for home and outpt f/u. as noted before, I can see him if outpt primary refers him. can go to [facility] be sure that spouse has rpr and hiv testing both and can take prep until pt controlled. Time Spent With Patient Time: Total time spent is greater than 50% in coordination of care (as documented) at patient's floor/unit and/or counseling patient:
[2024-11-11] MEDS: EMTRICITABINE 200 MG/TENOFOVIR 300 MG TAB (NON-FORM) 1 TAB PO (09:40)
[2024-11-11] MEDS: RALTEGRAVIR 400 MG TABLET PO (09:40)
--- NOTE | 2024-11-11 10:40 | PC.SS ---
Follow up note: On IV antibiotic, repeat quantiferon, on isolation precaution. Rule out TB. Pt will return home upon dc.
--- NOTE | 2024-11-11 11:53 | PC.NURSE ---
Patient refused assessment this morning. He also refused depakote medication. I educated patient on his diet. He will be on full liquids till lunch and will have a bland regular diet for dinner. I cleaned up the spilled water at the door way. Provided patient with more water. We also spoke about patient wanting to go AMA I explained the consequences of that decision to patient. That I would notify the doctor about his decision. Friend at bed side also told patient to calm down and to stay. Patient then told me he would tell me later if he was going to go AMA or not.
[2024-11-11 12:00] VITALS: BP 107/62; PULSE 87; RESP 19; TEMP 36.4; O2SAT 95
--- NOTE | 2024-11-11 12:20 | PC.NURSE ---
NOTIFIED DR. BROUSSARD PATIENT IS REFUSING TELE BOX. TELE BOX BACK AT NURSES STATION. WILL CONTINUE TO MONITOR PATIENT.
--- NOTE | 2024-11-11 12:43 | PC.NURSE ---
DR. BROUSSARD NOTIFIED PATIENT WANTED TO GO AMA. IV'S REMOVED FROM PATIENT. DR. BROUSSARD EDUCATED HIM ON THE CONSEQUENCES OF GOING AMA. WE ALSO EDUCATED PATIENT TO RETURN TO THE ER OR ANY ER IS PATIENT BEGINS TO FEEL ILL. PATIENT WAS ESCORTED BY SECURITY DOWN THE STAIRS AND PATIENT WORE A MASK.
--- NOTE | 2024-11-11 13:57 | ESDS_ITS ---
<Statement entered by Megan Garcia MD - 11/11/24 16:11> Patient was seen and examined by me personally. I have reviewed the below documentation by the team resident and agree with its findings with any exceptions as below. Discharge plan was discussed with the attending, Dr. Hyde. The patient has decided to sign out against medical advice (AMA) after being explained the risks & benefits of leaving before medical clearance/discharge. The patient had the opportunity to ask questions about their condition which were answered to their satisfaction; the patient is aware that they may return for further care at any time as needed. Patient was alert and oriented x4 with ability to demonstrate understanding of the above and signed the AMA form. Megan Garcia, PGY-2 Planned Discharge Date 11/11/24 DS: Providers Provider Date of admission: 11/07/24 23:03 Primary care physician: Physician Debora Primary/Family Admitting Provider: Aly Cuenca MD Attending Provider on Admission: Kimani Hyde MD Consults: 11/08/24 08:32 Consult to Infectious Diseases Routine Comment: HIV with PCP PNA + CAP, Syphillis pending treponem Consulting Provider: David Regan 11/08/24 18:12 Health Equity Referral - Safety Routine Comment: Positive screening for safety needs. Health Equity Referral - Transportation Routine Comment: Positive screening for transportation needs. 11/08/24 18:29 Referral Speech Therapy Routine Comment: per pt having issues swallowing 11/09/24 10:48 Consult to Gastroenterology Routine Comment: Dysphagia; Hx of HIV Consulting Provider: Kamlesh Morgan Attending Provider on DC: Jimy Lane MD Discharging Provider: Jimy Lane MD DS: Diagnosis Problem List Completed Was Problem List Reviewed/Reconciled?: Yes Hospital Course Hospital Course Hospital course: 34-year-old male with known case of HIV, asthma, chronic anemia, syphilis, bipolar disorder, hypertension presented to the ED on 11/08 with productive cough. In the ED, patient had excessive phlegm production and met sepsis criteria with elevated WBC, tachycardia, tachypnea and fever of 103.2. Patient was admitted for community-acquired pneumonia complicated by immunocompromise state. Patient was started on HIV medications and HIV viral load and CD4/CD8 labs were ordered. Patient also reported to have some diarrhea and stool studies were also ordered which were grossly negative as long as the patient was in the hospital but other tests were still pending. Patient also reported some dysphagia to solid foods and as a result GI was consulted and completed an EGD on 11/10 with successful dilation of the esophagus. Infectious disease was consulted for the patient and based off their recommendations antibiotic regiment was changed. Patient's syphilis was positive as noted by treponemal antibody and VDRL studies; moreover, infectious disease switched the patient from ceftriaxone to doxycycline and recommended that he continue the regimen for 30 days. Patient's symptoms improved throughout the days and on 11/11 when examined patient became flustered as his diet orders were getting mixed up. Patient's diet orders were to advance as tolerated but he was becoming irritated by this. After explanation was given to him regarding the reason for the diet order patient was agreeable at first but later on decided to leave AMA as he stated that a family member of his had become sick and required his assistance. Patient is leaving [facility] but his medications have been prescribed to his pharmacy and he is aware that he has a appointment with his PCP as noted below. Appointment time is Friday November 15, 2024 1:45pm at [facility] [place] in [place] with Dr. Leung Ask your doctor to refer you to Dr. Regan, infectious disease Hospital Diagnosis: #Community-acquired pneumonia #History of asthma #HIV infection CD4 count <20 #AIDS #Dysphagia #Leukocytosis #History of chronic diarrhea #Anemia of chronic disease #Active syphilis #History of hypertension #History of bipolar disorder #Elevated Liver Enzymes, downtrending Jimy Lane, PGY-1 Status at Discharge Overall status at discharge: patient is progressing back to baseline Time Spent with Patient Time attestation: Total time spent providing and/or coordinating discharge services: 45 minutes Time spent: Greater than 30 minutes Exam Vital Signs Temp Pulse Resp BP Pulse Ox O2 Del Method O2 Flow Rate 97.5 F 87 19 107/62 95 Room Air 3 11/11/24 12:11/11/24 12:11/11/24 12:11/11/24 12:11/11/24 12:11/11/24 12:11/10/24 20:30 Narrative Exam Physical Exam: GEN: Awake, answering questions appropriately, appears stated age HEENT: NC/AC, PERRLA, oral mucosa moist, neck supple CVS: RRR, S1-S2 present, no murmurs appreciated RESP: Coarse crackles bilaterally more on the right side, dry-cough noted GI: soft,non distended, non tender, borborymi apparent MSK: able to move all 4 limbs, no lower extremity edema ARMY RANGER: AOx3, CN II-XII and Sensation grossly intact. Discharge Plan Plan Patient Disposition: Left Against Medical Advice Patient condition on transfer: Stable Care Plan Goals: Appointment time is Friday November 15, 2024 1:45pm at [facility] in [place] with Dr. Leung Ask your doctor to refer you to Dr. Regan, infectious disease Please take doxycycline 100mg by mouth twice a day for a month for syphillis infection Please take emtricitabine-tenofovir 200-300mg tablet once a day and Isentress 400mg by mouth twice a day for HIV/AIDS If your symptoms worsen or if you develop new chest pain, shortness of breath, dizziness or loss of consciousness - please come back to the ED immediately. Prescriptions/Referrals Prescriptions/Med Rec: New doxycycline hyclate 100 mg Tablet 100 mg PO BID 30 Days Qty: 60 0RF emtricitabine-tenofovir (TDF) 200-300 mg Tablet 1 tab PO QDAY 30 Days Qty: 30 3RF Isentress 400 mg Tablet 400 mg PO BID 30 Days Qty: 60 3RF Continued buspirone 15 mg tablet 15 mg PO BID divalproex [Depakote ER] 500 mg tablet extended release 24 hr 500 mg PO BID gabapentin 100 mg capsule 100 mg PO QDAY hydroxyzine HCl 25 mg tablet 25 mg PO QDAY lisinopril 20 mg tablet 20 mg PO QDAY loratadine 10 mg tablet 10 mg PO QDAY Discontinued albuterol 90 mcg/actuation aerosol 90 mcg inhalation Q4H PRN (Reason: shortness of breath) benzonatate 200 mg capsule 200 mg PO TID Biktarvy 50-200-25 mg tablet 1 tab PO QDAY [id number]-[id number] 10-30-600 mg tablet extended release 12 hr PO BID Referrals: No Primary/Family,Physician [Primary Care Provider] - Patient/Caregiver Discharge Instructions Print Language: Slovak Quality Discharge Quality Measures VTE prophylaxis Attestestation MD Bouchra Brewster reviewed labs, imaging, EKG, home medications and prior available records. Face to face evaluation was performed by me. I have personally examined the patient and discussed assessment and plan with the IM team. I reviewed the resident note and agree with the plan with exceptions as below. MANUEL, new complication HIV infection Bilateral pneumonia Immunocompromise GERD Odynophagia Dysphagia, esophageal Possible iron deficiency anemia Active syphilis Creatinine improved. Repeat BMP in 1 week Continue doxycycline for total of 30 days. Repeat syphilis serology as outpatient after the end of the treatment Finished 3 days of azithromycin 500 mg ID discontinued Bactrim Follow-up Fungitell and LDH Follow-up CD4/HIV viral load Follow-up TB QuantiFERON: Indeterminant however TB is less likely in the setting of improvement of symptoms with treatment Syphilis serology is positive and confirmed: Continue IV ceftriaxone. [place] is notified by the lab Consulted GI: Status post EGD that showed mild stenosis status post dilation and esophagitis P.o. ferrous sulfate on discharge Patient left AMA. He does have the capacity to leave the hospital AGAINST MEDICAL ADVICE
[2024-11-13 17:51] LABS: Toxoplasma Antibody (IgM) <8.00
[2024-11-14 07:08] LABS: Giardia Result NOT DETECTED
[2024-11-14 07:18] LABS: CMV Antibody (IgG) >10.00 U/mL; CMV Antibody (IgM) <30.00 AU/mL; Toxoplasma Antibody (IgG) <7.20
--- NOTE | 2024-11-15 08:55 | PC.IP ---
Kayla Rod HIV Health Delivery Manager from [facility] was notified of pt.'s positive HIV results and that the patient left [facility] on 03/13/25. Per Kayla Rod, pt. has been reported in [facility]. At this time, no records are required from [facility].
[2024-11-16 06:53] LABS: Legionella Ag, EIA, Urine* NOT DETECTED
== END 2024-11-11 12:45 | disposition left against medical advice (07) | DRG 890 ==
LOC: SERX 22:42 → SERHOLD 23:21 → S3SX 11-08 17:20
PROVIDERS: Internal Medicine Infectious Disease; Nurse Practitioner Family; Specialist; Student in an Organized Health Care Education/Training Program; Admitting Provider Internal Medicine; Emergency Provider Emergency Medicine; Visit Provider Student in an Organized Health Care Education/Training Program
PROC: 0D718ZZ Dilation of Upper Esophagus, Via Natural or Artificial Opening Endoscopic (ICD-10-PCS; CPT 43239; principal; 2024-11-10 19:30)
DX: A41.89 Other specified sepsis (principal); Z68.21 Body mass index [BMI] 21.0-21.9, adult; B59 Pneumocystosis; K22.2 Esophageal obstruction; K29.70 Gastritis, unspecified, without bleeding; R63.4 Abnormal weight loss; J45.909 Unspecified asthma, uncomplicated; I10 Essential (primary) hypertension; K52.9 Noninfective gastroenteritis and colitis, unspecified; F31.9 Bipolar disorder, unspecified; K21.00 Gastro-esophageal reflux disease with esophagitis, without bleeding; D64.9 Anemia, unspecified; A53.9 Syphilis, unspecified; B20 Human immunodeficiency virus [HIV] disease; R74.01 Elevation of levels of liver transaminase levels; N17.9 Acute kidney failure, unspecified; Z53.29 Procedure and treatment not carried out because of patient's decision for other reasons; Z91.148 Patient's other noncompliance with medication regimen for other reason; Z79.899 Other long term (current) drug therapy; Z88.0 Allergy status to penicillin
CPT/HCPCS: 36415; 36430; 71046; 71260; 74177; 80053; 80074; 81001; 82728; 83540; 83550; 83605; 83615; 83735; 83880; 84100; 84145; 84443; 85014; 85018; 85025; 85046; 85610; 85730; 86331; 86355; 86357; 86359; 86360; 86480; 86635; 86644; 86645; 86701; 86702; 86703; 86777; 86778; 86780; 86850; 86900; 86901; 86923; 87015; 87040; 87045; 87046; 87081; 87086; 87116; 87205; 87206; 87329; 87400; 87449; 87491; 87591; 87651; 87661; 87811; 87899; 87901; 89220; 92526; 92610; 93225; 94640; 96365; 96366; 96367; 96372; 96375; 99285; A4217; A4649; A9270; C1769; J0456; J0696; J1200; J1643; J2250; J2470; J3010; J3475; J7040; J7050; J7120; P9016; Q9967